=== PATIENT | female | born 1940 | race Caucasian/White ===

== ENCOUNTER 2017-01-29 19:32 | Emergency (ER) | payer OTHER, MEDICARE ==
[2017-01-29] MEDS ORDERED: ACETAMINOPHEN 325 MG TABLET PO ONE (20:46)
[2017-01-30] MEDS ORDERED: OXYCODONE-ACETAMINOPHEN 5-325 MG TABLET PO ONE (02:19)
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
[2017-01-30] MEDS ORDERED: HYDROCODONE/ACETAMINOPHEN 5-325 MG 6 TAB/DSPK PO PRN (03:02)
[2017-01-30 03:19] VITALS: BP 122/81
== END 2017-01-30 03:19 | disposition home or self-care (01) ==
LOC: ER 19:32
DX: S46.911A Strain of unspecified muscle, fascia and tendon at shoulder and upper arm level, right arm, initial encounter (principal); S16.1XXA Strain of muscle, fascia and tendon at neck level, initial encounter; S39.012A Strain of muscle, fascia and tendon of lower back, initial encounter; S09.93XA Unspecified injury of face, initial encounter; M54.2 Cervicalgia; M54.5 Low back pain; V89.2XXA Person injured in unspecified motor-vehicle accident, traffic, initial encounter
CPT/HCPCS: 99284; 72040; 72110; 73030; 72125; L0120

== ENCOUNTER → 2017-04-10 | Outpatient (CLI) | payer MEDICARE, OTHER ==
--- NOTE | 2017-04-12 08:52 | WOMENS IMAGING REPORT ---
EXAM DESCRIPTION: 3D SCREENING MAMMO BILAT COMPLETED DATE/TIME: 04/10/2017 3:16 pm REASON FOR STUDY: ROUTINE SCREENING 3D; Z12.31 Z12.31 ENCNTR SCREEN MAMMOGRAM FOR MALIGNANT NEOPLAS M OF CHRIS COMPARISON: Multiple since 2008 TECHNIQUE: Standard craniocaudal and mediolateral oblique views of each breast recorded using digita l acquisition and breast tomosynthesis. LIMITATIONS: None. FINDINGS: Findings present which are benign by mammographic criteria. No suspicious masses, calcifi cations or architectural distortion. Pertinent benign findings: Benign breast parenchymal calcifications bilaterally Read with the assistance of CAD. .[facility] - R2 Cenova Version 1.3 .[facility] - R2 Cenova Version 1.3 .[facility] - R2 Cenova Version 2.4 .[facility] [place] - R2 Cenova Version 2.4 .[facility] - R2 Hooker Up Version 9.2 Benign mammographic findings may include one or more of the following: Smooth masses, popcorn/rim/co arse calcifications, asymmetries, post-procedure changes, and lesions with long-standing stability. IMPRESSION: BENIGN MAMMOGRAPHIC FINDINGS. BIRADS 2 BREAST DENSITY: b. There are scattered areas of fibroglandular density. BIRAD: 2 BENIGN FINDING(S) RECOMMENDATION: RECOMMENDATION: ROUTINE SCREENING COMMENT: The patient has been notified of the results by letter per SA requirements. Additional no tification policies are in place for contacting patient with suspicious or incomplete findings. Quality ID #[id number]: The [employer] recommends an annual screening mammogram for women aged 40 years or over. This facility utilizes a reminder system to ensure that all patients receive reminder letters, and/or direct phone calls for appointments. This includes reminders for routine scr eening mammograms, diagnostic mammograms, or other Breast Imaging Interventions when appropriate. Th is patient will be placed in the appropriate reminder system. The [place] [employer] (ACR) has developed recommendations for screening MRI of the breast s in certain patient populations, to be used in conjunction with mammography. Breast MRI surveillanc e may be appropriate for women with more than 20% lifetime risk of developing breast cancer as deter mined by genetic testing, significant family history of the disease, or history of mantle radiation f or Hodgkins Disease. ACR Practice Guidelines 2008. DBT Technology DBT is a type of tomographic mammography. With conventional mammography, overlapping breast tissue ma y make lesions difficult to detect, even with good compression. DBT uses an x-ray tube that rotates a round the breast, taking images at different angles. These images are then combined to create thin sl ices of the breast that the radiologist can view as a 3D reconstruction. The [employer] unit can perform full-field digital mammograms (2D imaging); or DBT (3D imaging); or both, in a combination mode that quickly performs both the mammogram and the tomosynthesis scan while the breast is still compressed. PQRS 6045F: Fluoroscopic imaging is not utilized for breast tomosynthesis. TECHNICAL DOCUMENTATION: FINDING NUMBER: (1) ASSESSMENT: (1) JOB ID: [id number] [employer]- All Rights Reserved
== END ==
LOC: WI 14:34
PROVIDERS: ATTEND Physician Assistant
DX: Z12.31 Encounter for screening mammogram for malignant neoplasm of breast (principal)
CPT/HCPCS: 77063; G0202; 77067

== ENCOUNTER 2017-06-16 17:59 | Emergency (ER) | payer MEDICARE, OTHER ==
[2017-06-16] MEDS ORDERED: ALBUTEROL SULFATE 0.083% NEB 2.5 MG/3 ML AMPUL NEB ONE (18:45)
--- NOTE | 2017-06-16 18:47 | ER Document Report ---
ED Medical Screen (RME) - General Chief Complaint: Breathing Difficulty Stated Complaint: DIFFICULTY BREATHING Time Seen by Provider: 06/16/17 18:42 Mode of Arrival: Wheelchair Information source: Patient Notes: 77-year-old female COPD who for the past week has been on steroids Levaquin taking duo nebs 3 times a day presents with complaints of shortness of breath I have greeted and performed a rapid initial assessment of this patient. A comprehensive ED assessment and evaluation of the patient, analysis of test results and completion of the medical decision making process will be conducted by additional ED providers. PHYSICAL EXAMINATION: GENERAL: Well-appearing, well-nourished and in no acute distress. HEAD: Atraumatic, normocephalic. EYES: Pupils equal round extraocular movements intact, conjunctiva are normal. ENT: Nares patent NECK: Normal range of motion LUNGS:coarse rhonchi all throughout Musculoskeletal: Normal range of motion NEUROLOGICAL: Normal speech, normal gait. PSYCH: Normal mood, normal affect. SKIN: Warm, Dry, normal turgor, no rashes or lesions noted. TRAVEL OUTSIDE OF THE [place] IN LAST 30 DAYS: No - Related Data Allergies/Adverse Reactions: cefditoren [From Spectracef] Allergy (Verified 01/29/17 20:41) Past Medical History - Social History Chew tobacco use (# tins/day): No Frequency of alcohol use: None Drug Abuse: None - Past Medical History Cardiac Medical History: Reports: Hx Congestive Heart Failure, Hx Hypertension Denies: Hx Heart Attack Pulmonary Medical History: Reports: Hx Asthma, Hx COPD, Hx Pneumonia Denies: Hx Tuberculosis Neurological Medical History: Denies: Hx Cerebrovascular Accident - BELLS PALSY 30 YEAR AGO, Hx Seizures Renal/ Medical History: Denies: Hx Peritoneal Dialysis GI Medical History: Reports: Hx Gastroesophageal Reflux Disease, Hx Hiatal Hernia. Denies: Hx Hepatitis, Hx Ulcer Musculoskeltal Medical History: Reports Hx Arthritis Psychiatric Medical History: Reports: Hx Depression Infectious Medical History: Denies: Hx Hepatitis Past Surgical History: Reports: Hx Genitourinary Surgery - BLADDER SURGERIES, Hx Hysterectomy, Hx Urinary Tract Surgery. Denies: Hx Mastectomy, Hx Open Heart Surgery, Hx Pacemaker - Immunizations Hx Diphtheria, Pertussis, Tetanus Vaccination: Yes Physical Exam - Vital signs Vitals: Temp Pulse Resp BP Pulse Ox 97.8 F 65 20 142/68 H 98 06/16/17 18:21 06/16/17 18:21 06/16/17 18:21 06/16/17 18:21 06/16/17 18:21 Course - Vital Signs Vital signs: Temp Pulse Resp BP Pulse Ox 97.8 F 65 20 142/68 H 98 06/16/17 18:21 06/16/17 18:21 06/16/17 18:42 06/16/17 18:21 06/16/17 18:21
--- NOTE | 2017-06-16 19:30 | ER Document Report ---
ED General - General Chief Complaint: Breathing Difficulty Stated Complaint: DIFFICULTY BREATHING Time Seen by Provider: 06/16/17 18:42 Mode of Arrival: Wheelchair Notes: Patient is a 77-year-old female with past medical history of COPD, CHF, hypertension, hyperlipidemia who presents with 2 weeks of cough, shortness of breath and sputum production. States she saw her primary care doctor was started on steroids and levofloxacin without any significant improvement of her symptoms. States exertion worsens her symptoms. She denies any chest pain. She has not had any fever or constitutional symptoms. No hemoptysis. No history of DVT or pulmonary embolus. She does use albuterol inhalers at home with some improvement of her symptoms. She has a history of similar symptoms in the past in setting of COPD exacerbations and pneumonia. TRAVEL OUTSIDE OF THE [place] IN LAST 30 DAYS: No - Related Data Allergies/Adverse Reactions: cefditoren [From Spectracef] Allergy (Verified 06/16/17 20:02) Past Medical History - General Information source: Patient - Social History Smoking Status: Never Smoker Chew tobacco use (# tins/day): No Frequency of alcohol use: None Drug Abuse: None Lives with: Family Family History: Reviewed & Not Pertinent - Past Medical History Cardiac Medical History: Reports: Hx Congestive Heart Failure, Hx Hypertension Denies: Hx Heart Attack Pulmonary Medical History: Reports: Hx Asthma, Hx COPD, Hx Pneumonia Denies: Hx Tuberculosis Neurological Medical History: Denies: Hx Cerebrovascular Accident - BELLS PALSY 30 YEAR AGO, Hx Seizures Renal/ Medical History: Denies: Hx Peritoneal Dialysis GI Medical History: Reports: Hx Gastroesophageal Reflux Disease, Hx Hiatal Hernia. Denies: Hx Hepatitis, Hx Ulcer Musculoskeltal Medical History: Reports Hx Arthritis Psychiatric Medical History: Reports: Hx Depression Infectious Medical History: Denies: Hx Hepatitis Past Surgical History: Reports: Hx Genitourinary Surgery - BLADDER SURGERIES, Hx Hysterectomy, Hx Urinary Tract Surgery. Denies: Hx Mastectomy, Hx Open Heart Surgery, Hx Pacemaker - Immunizations Hx Diphtheria, Pertussis, Tetanus Vaccination: Yes Hx Pneumococcal Vaccination: 10/28/11 Review of Systems - Review of Systems Notes: Constitutional: Negative for fever. HENT: Negative for sore throat. Eyes: Negative for visual changes. Cardiovascular: Negative for chest pain. Respiratory: Positive for shortness of breath. Gastrointestinal: Negative for abdominal pain, vomiting or diarrhea. Genitourinary: Negative for dysuria. Musculoskeletal: Negative for back pain. Skin: Negative for rash. Neurological: Negative for headaches, weakness or numbness. 10 point ROS negative except as marked above and in HPI. Physical Exam - Vital signs Vitals: Temp Pulse Resp BP Pulse Ox 97.8 F 65 20 142/68 H 98 06/16/17 18:21 06/16/17 18:21 06/16/17 18:21 06/16/17 18:21 06/16/17 18:21 Interpretation: Normal Notes: PHYSICAL EXAMINATION: GENERAL: Well-appearing, well-nourished and in no acute distress. HEAD: Atraumatic, normocephalic. EYES: Pupils equal round and reactive to light, extraocular movements intact, sclera anicteric, conjunctiva are normal. ENT: nares patent, oropharynx clear without exudates. Moist mucous membranes. NECK: Normal range of motion, supple without lymphadenopathy LUNGS: Scattered rales in all lung alberts. Expiratory wheezing. Mild tachypnea but no evidence of respiratory distress HEART: Regular rate and rhythm without murmurs ABDOMEN: Soft, nontender, normoactive bowel sounds. No guarding, no rebound. No masses appreciated. EXTREMITIES: Normal range of motion, no pitting or edema. No cyanosis. NEUROLOGICAL: No focal neurological deficits. Moves all extremities spontaneously and on command. PSYCH: Normal mood, normal affect. SKIN: Warm, Dry, normal turgor, no rashes or lesions noted. Course - Re-evaluation Re-evalutation: 06/16/17 19:28 Patient presents with 1 week of progressively worsening shortness of breath and cough with history of COPD as well as CHF. Patient denies any weight gain and states she does weigh herself daily. She only has trace lower extremity edema bilaterally and does take 100 mg of furosemide daily and has not missed any dosing. Lung exam with scattered rales and wheezes in all lung alberts. No respiratory distress. She is already being treated for possible COPD exacerbation as an outpatient with steroids, levofloxacin as well as scheduled DuoNeb's without any significant improvement in her symptoms. COPD exacerbation is an alternative consideration. Will obtain labs, chest x-ray, and reassess. 06/16/17 20:30 Chest x-ray is clear without any evidence of pulmonary edema. ProBNP is not elevated. Labs are unremarkable. Will ambulate with a pulse ox and reassess 06/16/17 20:57 Patient did ambulate without hypoxia or tachycardia. However, did become lightheaded and near syncopal after a short distance requiring that she sit down and be placed in a wheelchair to return to her room. Will continue to treat and reassess. 06/16/17 22:13 Patient has had improvement of her symptoms. Remains without hypoxemia, tachycardia or tachypnea. I have discussed with the patient the options of being admitted to the hospital versus outpatient management. We have reviewed the risks and benefits of each approach. Her daughter at the bedside as a witness this conversation. Patient states she would like to go home and continue trying outpatient management and close outpatient follow-up. At this time will discharge with return precautions and follow-up recommendations. Verbal discharge instructions given a the bedside and opportunity for questions given. Medication warnings reviewed. Patient is in agreement with this plan and has verbalized understanding of return precautions and the need for primary care follow-up in the next 24-72 hours. - Vital Signs Vital signs: Temp Pulse Resp BP Pulse Ox 97.7 F 65 18 140/69 H 97 06/16/17 22:15 06/16/17 18:21 06/16/17 22:01 06/16/17 22:01 06/16/17 22:01 - Laboratory Result Diagrams: 06/16/17 19:18 06/16/17 19:18 Laboratory results interpreted by me: 06/16/17 06/16/17 19:18 19:18 RDW 15.1 H BUN 21 H Est GFR (Non-Af Amer) 57 L - Diagnostic Test Radiology reviewed: Image reviewed, Reports reviewed Radiology results interpreted by me: 06/16/17 22:14 Chest x-ray: No acute infiltrate or pneumothorax - EKG Interpretation by Me Additional EKG results interpreted by me: 06/17/17 04:09 Normal sinus rhythm. Rate 63. No ST elevations or depressions. QTC is 471. Discharge - Discharge Clinical Impression: COPD exacerbation Condition: Fair Disposition: HOME, SELF-CARE Additional Instructions: You were seen for a COPD exacerbation. Your symptoms improved with treatment here in the emergency department. However, it is very important that you return to the emergency department immediately if you began to have worsening difficulty breathing that does not respond to your normal home nebulizers. You are also being sent home on a five-day course of steroids that you should start taking tomorrow. Please also take the antibiotics as prescribed. Please also follow closely with your primary care physician. You should eturn to emergency department if you develop fever greater than 101, persistent cough, persistent vomiting, pass out, or any other symptoms that are concerning to you. Prescriptions: Doxycycline Hyclate 100 mg PO BID #14 capsule Prednisone [Deltasone 20 mg Tablet] 3 tab PO DAILY 5 Days tablet Referrals: NIA MENDOSA PA [Primary Care Provider] - Follow up tomorrow
[2017-06-16 19:41] LABS: ABSOLUTE EOSINOPHILS # (AUTO) 0.1 10^3/uL (0.0-0.6); ABSOLUTE LYMPHOCYTES (AUTO) 2.7 10^3/uL (0.5-4.7); ABSOLUTE MONOCYTES (AUTO) 0.6 10^3/uL (0.1-1.4); ABSOLUTE NEUT (AUTO) 5.3 10^3/uL (1.7-8.2); BASOPHILS % (AUTO) 0.3 % (0-2); EOSINOPHILS % (AUTO) 1.6 % (0-6); HEMATOCRIT 36.8 % (36.0-47.0); HEMOGLOBIN 12.5 g/dL (12.0-15.5); HGB HCT DIFFERENCE 0.7; LYMPHOCYTES % (AUTO) 30.8 % (13-45); MEAN CORPUSCULAR HEMOGLOBIN 31.4 pg (27.0-33.4); MEAN CORPUSCULAR HGB CONC 34.1 g/dL (32.0-36.0); MEAN CORPUSCULAR VOLUME 92 fl (80-97); MONOCYTES % (AUTO) 7.1 % (3-13); RED BLOOD COUNT 3.99 10^6/uL (3.72-5.28); RED CELL DISTRIBUTION WIDTH 15.1 % (11.5-14.0); SEGMENTED NEUTROPHILS % (AUTO) 60.2 % (42-78); WHITE BLOOD COUNT 8.8 10^3/uL (4.0-10.5)
[2017-06-16 19:43] LABS: ALANINE AMINOTRANSFERASE 49 U/L (9-52); ALKALINE PHOSPHATASE 92 U/L (38-126); ANION GAP 11 (5-19); ASPARTATE AMINO TRANSFERASE 29 U/L (14-36); BILIRUBIN,DIRECT 0.3 mg/dL (0.0-0.4); BILIRUBIN,TOTAL 0.3 mg/dL (0.2-1.3); BLOOD UREA NITROGEN 21 mg/dL (7-20); CALCIUM 9.4 mg/dL (8.4-10.2); CARBON DIOXIDE 27 mmol/L (22-30); CHLORIDE 105 mmol/L (98-107); CREATINE KINASE 55 U/L (30-135); CREATININE RESULT 0.95 mg/dL (0.52-1.25); GLUCOSE 83 mg/dL (75-110); POTASSIUM 3.8 mmol/L (3.6-5.0); SODIUM 143.3 mmol/L (137-145); TOTAL PROTEIN 6.3 g/dL (6.3-8.2)
[2017-06-16 19:52] LABS: APPEARANCE,URINE CLEAR; BILIRUBIN,URINE NEGATIVE (NEGATIVE); GLUCOSE, URINE NEGATIVE (NEGATIVE); KETONES,URINE NEGATIVE (NEGATIVE); LEUKOCYTE ESTERASE,URINE NEGATIVE (NEGATIVE); NITRITE,URINE NEGATIVE (NEGATIVE); PROTEIN,URINE NEGATIVE (NEGATIVE); UROBILINOGEN,URINE NEGATIVE mg/dL (<2.0)
[2017-06-16 19:55] LABS: CREATINE KINASE MB 3.22 ng/mL (<4.55)
[2017-06-16 19:56] LABS: TROPONIN I < 0.012 ng/mL
--- NOTE | 2017-06-16 19:58 | RADIOLOGY REPORT (SQ) ---
EXAM DESCRIPTION: CHEST SINGLE VIEW COMPLETED DATE/TIME: 06/16/2017 7:46 pm REASON FOR STUDY: sob COMPARISON: September 2016 EXAM PARAMETERS: NUMBER OF VIEWS: One view. TECHNIQUE: Single frontal radiographic view of the chest acquired. RADIATION DOSE: NA LIMITATIONS: None. FINDINGS: LUNGS AND PLEURA: No opacities, masses or pneumothorax. No pleural effusion. Linear densi ty is identified in the left lung base which could represent subsegmental atelectasis or scarring. MEDIASTINUM AND HILAR STRUCTURES: No masses. Contour normal. HEART AND VASCULAR STRUCTURES: Heart normal in size. Normal vasculature. BONES: No acute findings. HARDWARE: None in the chest. OTHER: No other significant finding. IMPRESSION: NO ACUTE RADIOGRAPHIC FINDING IN THE CHEST. TECHNICAL DOCUMENTATION: JOB ID: [id number]
[2017-06-16] MEDS ORDERED: IPRATROPIUM/ALBUTEROL 0.5-2.5 MG/3 ML AMPUL NEB ONE (20:29)
[2017-06-16] MEDS ORDERED: METHYLPREDNISOLONE INJ 125 MG/2 ML SDV IV ONE (20:29)
[2017-06-16] MEDS: MAGNESIUM SULFATE/D5W 1 GM/100 ML RTUPB IV SCH ×2 (20:56→21:14)
--- NOTE | 2017-06-16 21:11 | EKG REPORT ---
SEVERITY:- NORMAL ECG - SINUS RHYTHM : Confirmed by: Josue Guadarrama MD 16-Jun-2017 21:10:48
[2017-06-16 22:27] VITALS: BP 140/69
== END 2017-06-16 22:20 | disposition home or self-care (01) ==
LOC: ER 17:59
DX: J44.1 Chronic obstructive pulmonary disease with (acute) exacerbation (principal); R55 Syncope and collapse; I11.0 Hypertensive heart disease with heart failure; I50.9 Heart failure, unspecified; Z79.899 Other long term (current) drug therapy; R06.02 Shortness of breath; R05 Cough; Z87.01 Personal history of pneumonia (recurrent)
CPT/HCPCS: 93005; 96376; 94640 ×2; 99285; 96374; 96375; 36415; 87040; 82553; 82550; 85025; 80053; 81001; 84484; 83880; 71010; 93010; J2930; J3475; A9270 ×2; J7620

== ENCOUNTER → 2017-06-19 | Outpatient (CLI) | payer MEDICARE, OTHER ==
--- NOTE | 2017-06-19 14:50 | RADIOLOGY REPORT (SQ) ---
EXAM DESCRIPTION: CTA CHEST COMPLETED DATE/TIME: 06/19/2017 2:27 pm REASON FOR STUDY: R/O MASS, PE, PNE J44.1 CHRONIC OBSTRUCTIVE PULMONARY DISEASE W (ACUTE) EXACER R9 3.8 ABNORMAL FINDINGS ON DIAGNOSTIC IMAGING OF BODY STRUCT R06.02 SHORTNESS OF BREATH COMPARISON: 01/08/2014 TECHNIQUE: CT scan of the chest performed using helical scanning technique with dynamic intravenous contrast injection. Images reviewed with lung, soft tissue and bone windows. Reconstructed coronal and sagittal MPR images reviewed. Additional 3 dimensional post-processing performed to develop Maximal Intensity Projection images (WA P). All images stored on PACS. All CT scanners at this facility use dose modulation, iterative reconstruction, and/or weight based d osing when appropriate to reduce radiation dose to as low as reasonably achievable (ALARA). [facility]: Dose Right [facility]: CareDose [facility]: Dose Right [facility]: Teradose 4D [facility]: DIIME CONTRAST TYPE AND DOSE: contrast/concentration: Isovue 370.00 mg/ml; Total Contrast Delivered: 63.0 ml; Total Saline Delivered: 100.0 ml RENAL FUNCTION: Creatinine 0.9 RADIATION DOSE: Up-to-date CT equipment and radiation dose reduction techniques were employed. CTDIv ol: 10.5 - 11.3 mGy. DLP: 409 mGy-cm. . LIMITATIONS: None. FINDINGS: LUNGS AND PLEURA: 5 mm calcified granuloma in the right lower lobe smaller than on the hank or study. Stable 2 mm calcified granuloma in the right middle lobe. Minimal stable scarring in the right middle lobe. Mild COPD. Minimal left basilar scarring. No active infiltrate. No effusion. AORTA AND GREAT VESSELS: Poorly opacified. No definite abnormalities. HEART: No pericardial effusion. Mild coronary artery calcification. PULMONARY ARTERIES: No emboli visualized in the main pulmonary arteries or the segmental branches. HILAR AND MEDIASTINAL STRUCTURES: No identified masses or abnormal nodes. HARDWARE: None in the chest. UPPER ABDOMEN: No significant findings. Limited exam. THYROID AND OTHER SOFT TISSUES: No masses. No adenopathy. BONES: No acute or significant finding. 3D MIPS: Confirm above findings. OTHER: No other significant finding. IMPRESSION: 1. No evidence of pulmonary embolus. 2. Mild COPD. 3. Old granulomatous disease with minimal scarring. TECHNICAL DOCUMENTATION: JOB ID: [id number] Quality ID # [id number]: Final reports with documentation of one or more dose reduction techniques (e.g., Au tomated exposure control, adjustment of the mA and/or kV according to patient size, use of iterative reconstruction technique) 2010 [employer]- All Rights Reserved
== END ==
LOC: RAD 13:27
PROVIDERS: ATTEND Physician Assistant
DX: J44.1 Chronic obstructive pulmonary disease with (acute) exacerbation (principal); R06.02 Shortness of breath; R93.8 Abnormal findings on diagnostic imaging of other specified body structures
CPT/HCPCS: 71275; 82565

== ENCOUNTER 2017-07-19 10:17 | Emergency (ER) | payer MEDICARE, OTHER ==
[2017-07-19 10:21] VITALS: BP 155/69
[2017-07-19] MEDS ORDERED: LIDOCAINE 1% INJ-PF (10 MG/ML) 30 ML SDV INJ ONE (10:30)
--- NOTE | 2017-07-19 10:31 | ER Document Report ---
HPI - HPI Pain Level: 4 Notes: Patient is a 77-year-old female who presents the ED complaining of a laceration to her right fifth anterior digit status post crush injury between a chair and table prior to arrival. Patient states that she is still able to move the finger without difficulties. She denies any numbness or tingling. The pain does not radiate. The pain is described as a soreness. Patient denies any other significant past medical history at this time. She denies any smoking or drug use. Denies any headache, fever, chest pain, palpitations, syncope, cough , shortness of breath, wheeze, dyspnea, abdominal pain, nausea/vomiting/diarrhea , dysuria, hematuria, muscle paralysis/weakness, or rash. Last tetanus <5 yrs ago per pt. - ROS Notes: REVIEW OF SYSTEMS: CONSTITUTIONAL : Denies fever, chills, or sweats. Denies recent illness. EENT: Denies eye, ear, throat, or mouth pain or symptoms. Denies nasal or sinus congestion or discharge. Denies throat, tongue, or mouth swelling or difficulty swallowing. CARDIOVASCULAR: Denies chest pain. Denies palpitations or racing or irregular heart beat. Denies ankle edema. RESPIRATORY: Denies cough, cold, or chest congestion. Denies shortness of breath, difficulty breathing, or wheezing. GASTROINTESTINAL: Denies abdominal pain or distention. Denies nausea, vomiting , or diarrhea. Denies blood in vomitus, stools, or per rectum. Denies black, tarry stools. Denies constipation. GENITOURINARY: Denies difficulty urinating, painful urination, burning, frequency, blood in urine, or discharge. MUSCULOSKELETAL: Denies back or neck pain or stiffness. Denies joint pain or swelling. SKIN: see hpi NEUROLOGICAL: Denies confusion or altered mental status. Denies passing out or loss of consciousness. Denies dizziness or lightheadedness. Denies headache. Denies weakness or paralysis or loss of use of either side. Denies problems with gait or speech. Denies sensory loss, numbness, or tingling. ALL OTHER SYSTEMS REVIEWED AND NEGATIVE. Dictation was performed using [employer] voice recognition software - REPRODUCTIVE Reproductive: DENIES: : - DERM Skin Color: Normal Past Medical History - Social History Smoking Status: Never Smoker Family History: Reviewed & Not Pertinent - Past Medical History Cardiac Medical History: Reports: Hx Congestive Heart Failure, Hx Hypertension Denies: Hx Heart Attack Pulmonary Medical History: Reports: Hx Asthma, Hx COPD, Hx Pneumonia Denies: Hx Tuberculosis Neurological Medical History: Denies: Hx Cerebrovascular Accident - BELLS PALSY 30 YEAR AGO, Hx Seizures Renal/ Medical History: Denies: Hx Peritoneal Dialysis GI Medical History: Reports: Hx Gastroesophageal Reflux Disease, Hx Hiatal Hernia. Denies: Hx Hepatitis, Hx Ulcer Musculoskeltal Medical History: Reports Hx Arthritis Psychiatric Medical History: Reports: Hx Depression Infectious Medical History: Denies: Hx Hepatitis Past Surgical History: Reports: Hx Genitourinary Surgery - BLADDER SURGERIES, Hx Hysterectomy, Hx Urinary Tract Surgery. Denies: Hx Mastectomy, Hx Open Heart Surgery, Hx Pacemaker - Immunizations Hx Diphtheria, Pertussis, Tetanus Vaccination: Yes Hx Pneumococcal Vaccination: 10/28/11 Vertical Provider Document - CONSTITUTIONAL Agree With Documented VS: Yes Notes: PHYSICAL EXAMINATION: GENERAL: Well-appearing, well-nourished and in no acute distress. LUNGS: Breath sounds clear to auscultation bilaterally and equal. No wheezes rales or rhonchi. HEART: Regular rate and rhythm without murmurs, rubs, gallops. Musculoskeletal: Rt 5th digit: FROM to passive/active. Strength 5+/5. + 1cm laceration to the anterior digit b/w IP jts. No bony tenderness. N/V intact distal. Extremities: No cyanosis, clubbing, or edema b/l. Peripheral pulses 2+. Capillary refill less than 3 seconds. NEUROLOGICAL: Normal speech, normal gait. Normal sensory, motor exams PSYCH: Normal mood, normal affect. SKIN: see MSK exam. - INFECTION CONTROL TRAVEL OUTSIDE OF THE [place] IN LAST 30 DAYS: No - RESPIRATORY O2 Sat by Pulse Oximetry: 97 Course - Re-evaluation Re-evalutation: 07/19/17 11:30 Patient is an afebrile, well-hydrated, 77-year-old female who presents the ED with 1/5 digit laceration. Vitals are stable. PE otherwise unremarkable for any neurovascular compromise. Low suspicion/risk for any tendon or ligament laceration, septic joint, sepsis, necrotizing fasciitis, or deep space infection. Patient is aware that her condition can change from initial presentation and she needs to monitor symptoms closely and seek medical attention if any acute changes. Wound edges were approximated appropriately utilizing 3 simple interrupted sutures. Patient tolerated the procedure well without any complications. Wound thoroughly irrigated/cleansed. Wound dressing was placed and wound instructions were reviewed. Splint placed. I will send her home with a prescription for Bactrim as prophylactic. Tdap given today. Conservative measures for symptoms as reviewed. Recheck with your PCM in 2-3 days for a wound check. Sutures will need removed in 10-14 days. Return to the ED with any worsening/concerning symptoms otherwise as reviewed discharge. Patient is in agreement. - Vital Signs Vital signs: Temp Pulse Resp BP Pulse Ox 97.6 F 77 16 155/69 H 97 07/19/17 10:18 07/19/17 10:18 07/19/17 10:18 07/19/17 10:18 07/19/17 10:18 Procedures - Laceration/Wound Repair Right 5th digit Time completed: 11:25 Wound length (cm): 1 Wound's Depth, Shape: Superficial, Irregular Laceration pre-procedure: Sterile PPE donned, Sterile drapes applied, Shur- Clens applied Anesthetic type: 1% Lidocaine Volume Anesthetic (mLs): 4 Wound explored: Clean, No foreign body removed Irrigated w/ Saline (mLs): 60 Wound Debrided: Minimal Wound Repaired With: Sutures Suture Size/Type: 5:0, Nylon Number of Sutures: 3 Layer Closure?: No Post-procedure wound care: Sterile dressing applied, Splint applied Post-procedure NV exam normal: Yes Complications: No Discharge - Discharge Clinical Impression: Finger laceration Qualifiers: Encounter type: initial encounter Finger: little finger Damage to nail status: without damage Foreign body presence: without foreign body Laterality: right Qualified Code(s): S61.216A - Laceration without foreign body of right little finger without damage to nail, initial encounter Condition: Stable Disposition: HOME, SELF-CARE Instructions: Antibiotic Ointment Protection ([facility]), Laceration Care ([facility]), Prophylactic Antibiotic ([facility]), Soap Cleansing ([facility]) Additional Instructions: Do not shower or bathe for 24 hours. After 24 hours you may shower but no submersion of the wound under water. Keep the original dressing on the wound for 24 hours unless the drainage soaks through. Change the dressing daily thereafter and keep the knots of the suture material clean from any dried discharge. You may leave the wound open to the air once there is no more discharge. Return to the ED and/or your PCM in 2-3 days for a recheck. Monitor for any signs of worsening pain or redness, purulent drainage, streaks, and/or fever. Return to the ED if noticing any of the above symptoms or as needed. Take medications as directed. Your sutures will need to be removed in 10-14 days. Prescriptions: Sulfamethoxazole/Trimethoprim [Bactrim Ds Tablet] 1 each PO BID #10 tablet Forms: Elevated Blood Pressure Referrals: [facility] [Provider Group] - Follow up as needed
--- NOTE | 2017-07-19 11:27 | RADIOLOGY REPORT (SQ) ---
EXAM DESCRIPTION: FINGER RIGHT COMPLETED DATE/TIME: 07/19/2017 11:01 am REASON FOR STUDY: Laceration, crush injury rt 5th digit COMPARISON: None. NUMBER OF VIEWS: Three views. TECHNIQUE: AP, lateral, and oblique images acquired of the right fifth finger. LIMITATIONS: None. FINDINGS: MINERALIZATION: Osteopenia. BONES: No acute fracture or dislocation. No worrisome bone lesions. SOFT TISSUES: No soft tissue swelling. No foreign body. OTHER: Considerable degenerative joint changes seen in the 1st carpal metacarpal joint. IMPRESSION: NO RADIOGRAPHIC EVIDENCE OF ACUTE INJURY. COMMENT: SITE OF TRAUMA/COMPLAINT MARKED/STAMP COMPLETED: Yes TECHNICAL DOCUMENTATION: JOB ID: [id number] [employer]- All Rights Reserved
== END 2017-07-19 11:40 | disposition home or self-care (01) ==
LOC: ER 10:17
PROC: 0HQFXZZ Repair Right Hand Skin, External Approach (ICD-10-PCS; principal; 2017-07-19)
DX: S61.216A Laceration without foreign body of right little finger without damage to nail, initial encounter (principal); W23.0XXA Caught, crushed, jammed, or pinched between moving objects, initial encounter; I10 Essential (primary) hypertension; J44.9 Chronic obstructive pulmonary disease, unspecified
CPT/HCPCS: 99283; 73140; 12001; J3490

== ENCOUNTER → 2017-10-07 | Outpatient (CLI) | payer MEDICARE, OTHER ==
--- NOTE | 2017-10-07 16:32 | RADIOLOGY REPORT (SQ) ---
EXAM DESCRIPTION: WRIST RIGHT 3 VIEWS COMPLETED DATE/TIME: 10/07/2017 2:58 pm REASON FOR STUDY: PAIN IN RIGHT WRIST M25.531 PAIN IN RIGHT WRIST COMPARISON: None. NUMBER OF VIEWS: Four views. TECHNIQUE: AP, lateral, oblique, and scaphoid radiographic images acquired of the right wrist. LIMITATIONS: None. FINDINGS: MINERALIZATION: Osteopenia. BONES: No acute fracture. Joint space narrowing and osteophyte formation base of 1st metacarpal. SOFT TISSUES: No soft tissue swelling. No foreign body. OTHER: No other significant finding. IMPRESSION: Osteoarthritis. No acute findings. TECHNICAL DOCUMENTATION: JOB ID: [id number] [employer]- All Rights Reserved
== END ==
LOC: RAD 14:42
PROVIDERS: ATTEND Physician Assistant
DX: M25.531 Pain in right wrist (principal); R42 Dizziness and giddiness

== ENCOUNTER → 2017-11-15 | Outpatient (CLI) | payer MEDICARE, OTHER ==
[2017-11-18 13:34] LABS: ANTINUCLEAR ANTIBODIES Negative (Negative)
== END ==
LOC: OD 14:51
PROVIDERS: ATTEND Physician Assistant
DX: R51 Headache (principal)
CPT/HCPCS: 36415; 85652; 86038; 86140

== ENCOUNTER 2018-02-14 20:15 | Inpatient (IN) | payer MEDICARE, OTHER ==
[2018-02-14] MEDS ORDERED: IPRATROPIUM/ALBUTEROL 0.5-2.5 MG/3 ML AMPUL NEB ONE (21:46)
[2018-02-14] MEDS ORDERED: NORMAL SALINE 1000 ML 1,000 ML IV PRN (21:46)
--- NOTE | 2018-02-14 21:58 | ER Document Report ---
ED General - General Chief Complaint: Tremor Stated Complaint: POSSIBLE TREMORS Time Seen by Provider: 02/14/18 21:27 TRAVEL OUTSIDE OF THE [place] IN LAST 30 DAYS: No - HPI Notes: Patient is a 77-year-old female with a h/o chronic kidney disease, CHF, HTN, and COPD who presents to the ED with daughter complaining of generalized muscle spasming and twitching over the last 6 weeks, but worsened at 1300 today. Patient states that the shaking constantly has caused her to feel fatigued and weak with an unsteady gait. Patient states that she has to ambulate with assistance to use the bathroom at this time. Patient states that her symptoms are bilateral and to her upper and lower extremities as well as even her shoulders. Patient states that she is otherwise eating and drinking without difficulties. She has been urinating normally and having normal bowel movements. She has not taken any new medicines and has been taking her normal medication regimen as directed. She has no other concerns or complaints at this time. Denies any headache, fever, head injury, neck pain, changes in vision/speech/mentation/hearing, URI, sore throat, chest pain, palpitations, syncope, cough, shortness of breath, wheeze, dyspnea, abdominal pain, nausea/ vomiting/diarrhea, urinary retention, dysuria, hematuria, loss of control of bowel or bladder, numbness/tingling, saddle anesthesia, muscle paralysis/ weakness, or rash. - Related Data Allergies/Adverse Reactions: cefditoren [From Spectracef] Allergy (Verified 02/14/18 20:51) Past Medical History - Social History Smoking Status: Former Smoker Chew tobacco use (# tins/day): No Frequency of alcohol use: None Drug Abuse: None Family History: Reviewed & Not Pertinent Patient has suicidal ideation: No Patient has homicidal ideation: No - Past Medical History Cardiac Medical History: Reports: Hx Congestive Heart Failure, Hx Hypertension Denies: Hx Heart Attack Pulmonary Medical History: Reports: Hx Asthma, Hx COPD, Hx Pneumonia Denies: Hx Tuberculosis Neurological Medical History: Denies: Hx Cerebrovascular Accident - BELLS PALSY 30 YEAR AGO, Hx Seizures Renal/ Medical History: Denies: Hx Peritoneal Dialysis GI Medical History: Reports: Hx Gastroesophageal Reflux Disease, Hx Hiatal Hernia. Denies: Hx Hepatitis, Hx Ulcer Musculoskeltal Medical History: Reports Hx Arthritis Psychiatric Medical History: Reports: Hx Depression Infectious Medical History: Denies: Hx Hepatitis Past Surgical History: Reports: Hx Genitourinary Surgery - BLADDER SURGERIES, Hx Hysterectomy, Hx Urinary Tract Surgery. Denies: Hx Mastectomy, Hx Open Heart Surgery, Hx Pacemaker - Immunizations Hx Diphtheria, Pertussis, Tetanus Vaccination: Yes Hx Pneumococcal Vaccination: 10/28/11 Review of Systems - Review of Systems -: Yes All other systems reviewed and negative Physical Exam - Vital signs Vitals: Temp Pulse BP Pulse Ox 97.6 F 83 133/36 H 96 02/14/18 20:49 02/14/18 20:49 02/14/18 20:49 02/14/18 20:49 - Notes Notes: PHYSICAL EXAMINATION: GENERAL: Well-appearing, well-nourished and in no acute distress. A&Ox4. Answers questions appropriately. HEAD: Atraumatic, normocephalic. EYES: Pupils equal round and reactive to light, extraocular movements intact, sclera anicteric, conjunctiva are normal. no nystagmus. ENT: Nares patent and without discharge. oropharynx clear without exudates. No tonsilar hypertrophy or erythema. Moist mucous membranes. NECK: Normal range of motion, supple without lymphadenopathy. No rigidity. No midline tenderness. Spurling negative. LUNGS: scant wheeze b/l. Dec breath sounds left lower. HEART: Regular rate and rhythm without murmurs, rubs, gallops. ABDOMEN: Soft, nontender, nondistended abdomen. No guarding, no rebound. No masses appreciated. Normal bowel sounds present. No CVA tenderness bilaterally. Musculoskeletal: Ext b/l: FROM to passive/active. Strength 4+/5 b/l equal. No deficits noted. No bony tenderness of extremities. Back: FROM to passive/active. Strength 5+/5. No vertebral point tenderness, stepoffs, or deformities. No other bony tenderness or ecchymosis. SLR negative b/l. Extremities: No cyanosis, clubbing, or edema b/l. Peripheral pulses 2+. Capillary refill less than 2 seconds. NEUROLOGICAL: NIH 0. GCS 15. Cranial nerves grossly intact. Normal speech. Normal sensory, motor exams. Reflexes 2+ b/l. STANLEY's negative. Pronator drift negative. Heel/sandoval, finger/nose wnl. Clonus negative throughout. I was able to visualize that patient does have muscle twitching b/l extremities. Pt when focused, is able to stop them. PSYCH: Normal mood, normal affect. SKIN: Warm, Dry, normal turgor, no rashes or lesions noted. Course - Re-evaluation Re-evalutation: 02/15/18 00:30 Patient is an afebrile, well-hydrated, 77-year-old female who presents to the ED with acute kidney injury and pleural effusion left lung. Vitals are acceptable. PE is otherwise unremarkable at this time. Patient is tolerating p.o. and is urinating. CBC, BNP, CK, CK-MB, urinalysis were unremarkable for any acute pathology. See CMP results. CXR showed effusion left lung base. NIH 0, GCS 15, cranial nerves grossly intact. Pt was given 1 duoneb treatment. Reviewed case with Dr. Rosales as well. Plan to admit for further eval and management. Reviewed with Dr. Lai who will consult in the morning for thoracentesis. Reviewed with Dr. Quiles who accepted patient for admit. - Vital Signs Vital signs: Temp Pulse Resp BP Pulse Ox 97.6 F 74 19 155/69 H 94 02/14/18 20:49 02/14/18 21:21 02/15/18 00:01 02/15/18 00:01 02/15/18 00:01 - Laboratory Result Diagrams: 02/14/18 21:50 02/14/18 21:50 Laboratory results interpreted by me: 02/14/18 02/14/18 02/14/18 21:50 21:50 21:50 RDW 14.1 H Potassium 3.1 L Chloride 94 L Carbon Dioxide 32 H BUN 67 H Creatinine 2.00 H Est GFR ( Amer) 29 L Est GFR (Non-Af Amer) 24 L Glucose 122 H AST 44 H Creatine Kinase 139 H NT-Pro-B Natriuret Pep 462 H Total Protein 6.0 L Urine Ascorbic Acid 02/14/18 21:58 RDW Potassium Chloride Carbon Dioxide BUN Creatinine Est GFR ( Amer) Est GFR (Non-Af Amer) Glucose AST Creatine Kinase NT-Pro-B Natriuret Pep Total Protein Urine Ascorbic Acid 40 H Discharge - Discharge Clinical Impression: CRISTOBAL (acute kidney injury), Pleural effusion Condition: Stable Disposition: ADMITTED INPATIENT Admitting Provider: Hospitalist - Dr. Quiles Unit Admitted: Telemetry
[2018-02-14 22:21] LABS: ABSOLUTE EOSINOPHILS # (AUTO) 0.4 10^3/uL (0.0-0.6); ABSOLUTE MONOCYTES (AUTO) 0.6 10^3/uL (0.1-1.4); ABSOLUTE NEUT (AUTO) 4.2 10^3/uL (1.7-8.2); BASOPHILS % (AUTO) 0.2 % (0-2); EOSINOPHILS % (AUTO) 4.4 % (0-6); HEMATOCRIT 36.8 % (36.0-47.0); HEMOGLOBIN 12.5 g/dL (12.0-15.5); MEAN CORPUSCULAR HEMOGLOBIN 31.6 pg (27.0-33.4); MEAN CORPUSCULAR HGB CONC 34.1 g/dL (32.0-36.0); MEAN CORPUSCULAR VOLUME 93 fl (80-97); MONOCYTES % (AUTO) 6.8 % (3-13); PLATELET COUNT 206 10^3/uL (150-450); RED BLOOD COUNT 3.97 10^6/uL (3.72-5.28); RED CELL DISTRIBUTION WIDTH 14.1 % (11.5-14.0); SEGMENTED NEUTROPHILS % (AUTO) 51.6 % (42-78); TOTAL CELLS COUNTED % (AUTO) 100 %; WHITE BLOOD COUNT 8.2 10^3/uL (4.0-10.5)
[2018-02-14 22:22] LABS: APPEARANCE,URINE CLEAR; BILIRUBIN,URINE NEGATIVE (NEGATIVE); COLOR,URINE YELLOW; GLUCOSE, URINE NEGATIVE (NEGATIVE); KETONES,URINE NEGATIVE (NEGATIVE); LEUKOCYTE ESTERASE,URINE NEGATIVE (NEGATIVE); NITRITE,URINE NEGATIVE (NEGATIVE); PROTEIN,URINE NEGATIVE (NEGATIVE); URINE SPECIFIC GRAVITY 1.006; UROBILINOGEN,URINE NEGATIVE mg/dL (<2.0)
[2018-02-14 22:57] LABS: ALANINE AMINOTRANSFERASE 48 U/L (9-52); ALBUMIN 4.1 g/dL (3.5-5.0); ALKALINE PHOSPHATASE 83 U/L (38-126); ANION GAP 13 (5-19); ASPARTATE AMINO TRANSFERASE 44 U/L (14-36); BILIRUBIN,DIRECT 0.2 mg/dL (0.0-0.4); BILIRUBIN,TOTAL 0.2 mg/dL (0.2-1.3); BLOOD UREA NITROGEN 67 mg/dL (7-20); CALCIUM 9.1 mg/dL (8.4-10.2); CARBON DIOXIDE 32 mmol/L (22-30); CHLORIDE 94 mmol/L (98-107); CREATINE KINASE 139 U/L (30-135); GLUCOSE 122 mg/dL (75-110); POTASSIUM 3.1 mmol/L (3.6-5.0); SODIUM 139.1 mmol/L (137-145)
--- NOTE | 2018-02-14 23:56 | RADIOLOGY REPORT (SQ) ---
EXAM DESCRIPTION: CHEST SINGLE VIEW COMPLETED DATE/TIME: 02/14/2018 11:23 pm REASON FOR STUDY: wheeze COMPARISON: 06/19/2017 EXAM PARAMETERS: NUMBER OF VIEWS: One view. TECHNIQUE: Single frontal radiographic view of the chest acquired. RADIATION DOSE: NA LIMITATIONS: None. FINDINGS: LUNGS AND PLEURA: Left lateral basilar consolidation -effusion. Right lung appears clear. MEDIASTINUM AND HILAR STRUCTURES: Stable. HEART AND VASCULAR STRUCTURES: Stable. BONES: No acute findings. HARDWARE: None in the chest. OTHER: No other significant finding. IMPRESSION: Left lateral basilar consolidation -effusion. TECHNICAL DOCUMENTATION: JOB ID: [id number] [employer]- All Rights Reserved Reading location - IP/workstation name: [email or web address]
[2018-02-14] MEDS ORDERED: CYCLOBENZAPRINE HCL 10 MG TABLET PO ONE (23:58)
[2018-02-15] MEDS ORDERED: NORMAL SALINE 1000 ML 1,000 ML IV PRN (01:00)
[2018-02-15] MEDS ORDERED: PROMETHAZINE HCL INJ 25 MG/1 ML VIAL IV PRN (01:00)
[2018-02-15] MEDS ORDERED: ALBUTEROL SULFATE 0.083% NEB 2.5 MG/3 ML AMPUL NEB PRN ×2 (01:00→11:34)
[2018-02-15] MEDS: IPRATROPIUM/ALBUTEROL 0.5-2.5 MG/3 ML AMPUL NEB SCH ×2 (01:56→08:25)
[2018-02-15] MEDS ORDERED: POLYETHYLENE GLYCOL 3350 POWDER 17 GM/1 PACKET PO PRN (05:30)
--- NOTE | 2018-02-15 05:30 | PDOC H&P ---
History of Present Illness Admission Date/PCP: 02/15/18 00:38 TYRONE MONROY MD Patient complains of: Worsening generalized weakness and tremors since 1 PM. History of Present Illness: YANELIS ESPAÑA is a 77 year old female with history of dementia of Alzheimer's type , rheumatoid arthritis (on Plaquenil), COPD (not on home oxygen) and CHF was admitted with above-mentioned complaints. Some of the history was obtained from the patient's daughter at bedside. According to the patient, she has been having episodes of increased muscle spasm and tremors for the last 6 weeks or so. But around 1 PM yesterday, she started feeling very tremulous and the episode lasted more than 15 minutes. She also felt lightheaded but denied any loss of consciousness, dizziness or vertigo. She was nauseous but did not vomit. The patient also complained of having a very uncomfortable headache and some blurred vision. She had difficulty finding words to answer questions (which happens sometimes per daughter) but no slurred speech or dysphagia. She has chronic peripheral neuropathy but she denied any focal weakness. The patient also mentioned that she felt some chest "heaviness" yesterday morning which lasted for about an hour and improved after she used her rescue inhaler. It was associtated with shortness of breath, nonproductive cough, palpitations and chills but no fever or any sick contact. She denied any abdominal pain or diarrhea but complained of being constipated for the last 3 days, no urinary symptoms. She mentioned that she has been having increased leg swelling lately so her metolazone dose was changed from 2.5 mg every other day to daily in addition to Lasix 60 mg twice daily with improvement in herl leg edema. In the ED, her temperature was 97.6, heart rate 83, respiratory rate 17, blood pressure 133/36 with oxygen saturation of 96% on room air. Her WBC was 8.2 and her BUN/creatinine was 67/2.0 (up from 21/0.95 in 06/16/2017). Her glucose was 122. UA was negative chest x-ray showed left lateral basilar consolidation effusion. She received 10 mg Flexeril 1 and DuoNeb treatment 1. Past Medical History Medical History: Other - According to the patient and based on previous records. Cardiac Medical History: Reports: Congestive Heart Failure, Hyperlipidema, Hypertension Denies: Myocardial Infarction Pulmonary Medical History: Reports: Asthma, Chronic Obstructive Pulmonary Disease (COPD), Pneumonia Denies: Tuberculosis Neurological Medical History: Denies: Seizures Endocrine Medical History: Reports: Hypothyroidism Renal/ Medical History: Reports: Chronic Kidney Disease GI Medical History: Reports: Gastroesophageal Reflux Disease, Hiatal Hernia Denies: Hepatitis Musculoskeltal Medical History: Reports: Arthritis - RA, Other - peripheral neuropathy. chronic lower back pain. Psychiatric Medical History: Reports: Depression Hematology: Reports: Anemia Denies: Sickle Cell Disease Past Surgical History Past Surgical History: Reports: Hysterectomy, Tonsillectomy, Other - Bladder tuck 4-5 times. B/L cataracts. Denies: Amputation, Mastectomy, Pacemaker Social History Smoking Status: Former Smoker Cigarettes Packs Per Day: 0 - 3 packs a day for 30 years. She quit to 2530 years ago. Frequency of Alcohol Use: None Hx Recreational Drug Use: No Hx Prescription Drug Abuse: No - Advance Directive Resuscitation Status: Full Code Family History Family History: Reviewed & Not Pertinent Parental Family History Reviewed: Yes - Father: TB, mother: ND, brother 2: Cardiac disease. Children Family History Reviewed: No Sibling(s) Family History Reviewed.: Yes Medication/Allergy Home Medications: Atorvastatin Calcium [Lipitor 40 mg Tablet] 20 mg PO QHS 09/24/13 Furosemide [Lasix 40 mg Tablet] 40 mg PO QAM 09/24/13 Gabapentin [Neurontin] 800 mg PO TID 09/24/13 Levothyroxine Sodium [Synthroid 0.025 mg Tablet] 25 mcg PO DAILY 09/24/13 Montelukast Sodium [Singulair 10 mg Tablet] 10 mg PO DAILY 09/24/13 Sertraline HCl [Zoloft] 100 mg PO DAILY 09/24/13 Trazodone HCl [Desyrel] 200 mg PO QHS 09/24/13 Allopurinol 1 tab PO BID 09/25/13 Cholecalciferol (Vitamin D3) [Vitamin D3] 2,000 unit PO DAILY 09/25/13 Lisinopril 20 mg PO BID 07/03/14 Albuterol Sulfate [Ventolin 0.083% Neb 2.5 mg/3 mL Ampul] 1 vial NEB Q4 Budesonide/Formoterol Fumarate [Symbicort Hfa 160-4.5 Mcg Inhaler 6 gm] 2 puff IH Q12 04/21/15 Donepezil HCl [Aricept] 10 mg PO DAILY 04/21/15 Hydrocodone Bit/Acetaminophen [Hydrocodon-Acetaminophen 5-325] 1 each PO PRN PRN 04/21/15 Metoprolol Succinate [Toprol Xl] 50 mg PO DAILY 04/21/15 Potassium Chloride 10 meq PO DAILY 04/21/15 Tiotropium [place] [Spiriva Handihaler 18 mcg/dose (30 Dose)] 1 cap IH DAILY Tramadol HCl 50 mg PO DAILY 04/21/15 Cephalexin [Cephalexin 500 MG Tablet] 2 tab PO BID 04/27/15 Oxycodone HCl/Acetaminophen [Percocet 5-325 mg Tablet] 1 - 2 tab PO ASDIR PRN Promethazine HCl [Phenergan 25 mg Tablet] 25 - 50 mg PO ASDIR PRN 04/27/15 Oxycodone HCl/Acetaminophen [Percocet 5-325 mg Tablet] 1 - 2 tab PO ASDIR PRN # 15 tablet 01/30/17 Doxycycline Hyclate 100 mg PO BID #14 capsule 06/16/17 Prednisone [Deltasone 20 mg Tablet] 3 tab PO DAILY 5 Days tablet 06/16/17 Sulfamethoxazole/Trimethoprim [Bactrim Ds Tablet] 1 each PO BID #10 tablet 07/19 Allergies/Adverse Reactions: cefditoren [From Spectracef] Allergy (Verified 02/15/18 04:40) Review of Systems ROS unobtainable: Other - Pertinent positives and negatives as detailed in the HPI. Physical Exam Vital Signs: Temp Pulse Resp BP Pulse Ox 97.6 F 74 19 155/69 H 94 02/14/18 20:49 02/14/18 21:21 02/15/18 00:01 02/15/18 00:01 02/15/18 00:01 General appearance: PRESENT: no acute distress, well-developed, well-nourished Head exam: PRESENT: atraumatic, normocephalic Eye exam: PRESENT: PERRLA. ABSENT: nystagmus Mouth exam: PRESENT: moist Neck exam: PRESENT: full ROM. ABSENT: JVD Respiratory exam: PRESENT: decreased breath sounds, rales, rhonchi. ABSENT: wheezes Cardiovascular exam: PRESENT: RRR, +S1, +S2 Pulses: PRESENT: normal dorsalis pedis pul GI/Abdominal exam: PRESENT: normal bowel sounds. ABSENT: distended, rebound, rigid, tenderness Rectal exam: PRESENT: deferred Extremities exam: ABSENT: pedal edema Musculoskeletal exam: PRESENT: full ROM Neurological exam: PRESENT: alert, altered, awake, oriented to person, oriented to place, oriented to time, oriented to situation, CN II-XII grossly intact - excpt CNVIII, motor sensory deficit - Motor 4+/5 throughout. Decreased sensation bilateral leg secondary to chronic neuropathy. No Babinski or clonus. Gait was not assessed.. ABSENT: reflexes normal - hyperreflexia. Results Laboratory Results: CBC: WBC 8.2, hemoglobin 12.5, hematocrit 36.8, MCV 93, RDW 14.1, platelets 206. CMP: Sodium 139.1, potassium 3.1, chloride 94, bicarb 32, anion gap 13, BUN 67, creatinine 2.0, glucose 122, calcium 9.1, magnesium 1.6, AST 44, ALT 48, Troponin: negative x1. proBNP 462. UA: Negative EKG Comments: 12-lead EKG, sinus rhythm, ventricular rate 70, axis +55, QTC prolongation, trigeminy. Compared to a previous twelve-lead EKG done on the 2016, sinus rhythm, ventricular rate 65, axis +45, QTC prolongation first-degree AV block no acute changes. Impressions: Chest X-Ray 02/14/18 23:10 IMPRESSION: Left lateral basilar consolidation -effusion. Assessment & Plan - Diagnosis (1) Coarse tremors Is this a current diagnosis for this admission?: Yes Plan: Possibly secondary to gabapentin in the setting of the acute renal failure. She is usually on 600 mg 3 times daily. Will hold gabapentin for now and monitor. (2) CRISTOBAL (acute kidney injury) Is this a current diagnosis for this admission?: Yes Plan: on chronic with CKD stage 3 (BUN/creatinine was 21/0.95 on 06/16/2017) and/or this could be her new baseline creatinine. Her UA was negative. Will check urine osm, urine sodium, protein and creatinine, iPTH and phosphorus level. Will also check kidney ultrasound and avoid any nephrotoxic medications at this time. We will continue gentle hydration and monitor kidney function and urine output. (3) Trigeminy Is this a current diagnosis for this admission?: Yes Plan: which seems to be new. Will continue to monitor and replace electrolytes as indicated. Will repeat twelve-lead EKG and check an echocardiogram. (4) Essential hypertension Is this a current diagnosis for this admission?: Yes Plan: Holding lisinopril, Lasix and Metolazone for now. Her medications' list needs further clarification. (5) Chronic pain syndrome Is this a current diagnosis for this admission?: Yes Plan: The patient has chronic back pain. She takes Percocet 10/325 mg (x2 tabs) in AM and 1 tab in PM in addition to tramadol 50 mg twice a day in addition to Neurontin 600 mg 3 times daily. (6) Chronic CHF (congestive heart failure) Qualifiers: Heart failure type: unspecified Qualified Code(s): I50.9 - Heart failure, unspecified Is this a current diagnosis for this admission?: Yes Plan: CXR showed left lateral basilar consolidation-effusion. Will repeat a chest x- ray (PA and lateral). Per ED physician, he discussed her case with interventional radiology who agreed to do a left thoracentesis this a.m. Will follow up repeat chest x-ray and continue to hold all diuretics at this time. (7) Hypokalemia Is this a current diagnosis for this admission?: Yes Plan: and hypomagnesemia, will continue to replace electrolytes as indicated. (8) History of rheumatoid arthritis Is this a current diagnosis for this admission?: No Plan: On plaquenil which will continue. She follows with Dr. Jose as outpatient. - Time Time Spent: Greater than 70 Minutes - Inpatient Certification Based on my medical assessment, after consideration of the patient's comorbidities, presenting symptoms, or acuity I expect that the services needed warrant INPATIENT care.: Yes I certify that my determination is in accordance with my understanding of Medicare's requirements for reasonable and necessary INPATIENT services [42 CFR 412.3e].: Yes
[2018-02-15] MEDS: HEPARIN SOD (PORCINE) 5,000 UNIT/ML 1 ML SYRINGE SUBCUT SCH ×3 (06:51→22:14)
--- NOTE | 2018-02-15 08:18 | RADIOLOGY REPORT (SQ) ---
EXAM DESCRIPTION: U/S RETROPERITON LTD COMPLETED DATE/TIME: 02/15/2018 7:08 am REASON FOR STUDY: CRISTOBAL COMPARISON: None. TECHNIQUE: Dynamic and static grayscale images acquired of the kidneys and bladder and recorded on P ACS. Additional selected color Doppler and spectral images recorded. LIMITATIONS: None. FINDINGS: RIGHT KIDNEY: Normal size. Normal echogenicity. No solid or suspicious masses. No h ydronephrosis. No calcifications. LEFT KIDNEY: Normal size. Normal echogenicity. 13 mm cyst lower pole. No solid or suspicious ma sses. No hydronephrosis. No calcifications. BLADDER: No masses. OTHER FINDINGS: No other significant finding. IMPRESSION: 13 MM CYST LOWER POLE LEFT KIDNEY. OTHERWISE UNREMARKABLE RENAL AND BLADDER ULTRASOUND. NO OBSTRUCTIVE UROPATHY. TECHNICAL DOCUMENTATION: JOB ID: [id number] [employer]- All Rights Reserved Reading location - IP/workstation name: [email or web address]
--- NOTE | 2018-02-15 08:50 | PROGRESS NOTE E ---
Progress Note NAME: YANELIS ESPAÑA : 1940 AGE: 77Y DATE: 02/15/2018 ROOM: 413 SUBJECTIVE: The patient is currently lying in bed. She states that she feels much better in comparison to when she came in. The patient denies any tremors or any muscle spasms. The patient denies any nausea, vomiting, diarrhea. No shortness of breath, dizziness, chest pain. The patient has actually been able to ambulate to the bedside commode. The patient denies any fevers, chills. No cough. The patient has been afebrile. Blood pressure has been in the good range and the patient does not voice any other concerns at this time. REVIEW OF SYSTEMS: The rest of the review systems is negative. MEDICATIONS: Reviewed. OBJECTIVE: GENERAL: The patient is a 77-year-old female who is awake, alert and oriented to person, place, time and situation. She is a verbal conversationalist, does not appear to be in any acute distress. VITAL SIGNS: As follows: Temperature 97.9, pulse 91, respirations 18, blood pressure 154/80, oxygen saturation is 96% on room air. SKIN: Warm and dry. No rash, not diaphoretic. HEENT: Pupils equal, round, reactive to light and accommodation. Conjunctivae are pink. There is no evidence of JVP. CARDIOVASCULAR: Heart is regular. There is no murmur or rub. CHEST: Clear, symmetrical, unlabored. ABDOMEN: Soft, nontender, nondistended. BACK: No CVA tenderness. EXTREMITIES: No clubbing, cyanosis or edema. PSYCHIATRIC: Appropriate affect, pleasant mood. DIAGNOSTICS: Lab values are as follows: Hematology obtained on 02/14/2018: WBC 8.3, hemoglobin 12.5, hematocrit 36.8, platelet count 206,000. Chemistry obtained on 02/15/2018: Sodium 139, potassium 3.1, chloride 94, carbon dioxide 32, BUN 67, creatinine 2.0, glucose 122, calcium 9.1, magnesium 1.6, bilirubin 0.2, AST 44, ALT 48, alkaline phosphatase 83. IMPRESSION AND PLAN: 1. MUSCLE SPASMS AND TREMULOUSNESS. I do believe this is due to the patient's worsening renal function in the setting of Neurontin. However, we will add B12 and repeat electrolytes this morning and follow. 2. ACUTE KIDNEY INJURY. It appears that the patient's baseline creatinine is in the 0.95 range. We will continue to hydrate, repeat chemistry in the a.m. The patient's renal ultrasound was found to be unremarkable. 3. HYPERTENSION. Currently holding the patient's nephrotoxic medications. Blood pressure is slightly elevated, but in acceptable range at this time. 4. CHRONIC PAIN SYNDROME. Continue the patient's other home medications and follow. 5. HYPOKALEMIA. This is mild, we will replete. 6. HYPOMAGNESEMIA. We will replete. 7. RHEUMATOID ARTHRITIS. We will continue the patient's home medications. She is followed by Dr. Jose on an outpatient basis. 8. PLEURAL EFFUSION. Uncertain of the exact etiology of this. The patient does not appear to be in any sort of respiratory distress at this time or compromise. She is not requiring O2, is able to fully complete sentences. This can be worked up on an outpatient basis. DISPOSITION: The patient is a FULL CODE. Pending patient's symptomatology and diagnostic findings, will reevaluate in the a.m. Time spent on this followup including assessment, plan, physical examination, patient education, and review of records is 30 minutes. DICTATING PHYSICIAN: ERICA MENSAH NP [id number] Y#: [id number] ID: [id number] JOB#: [id number] ACCT: [id number] cc: >
--- NOTE | 2018-02-15 09:23 | EKG REPORT ---
SEVERITY:- ABNORMAL ECG - SINUS RHYTHM MULTIPLE PREMATURE COMPLEXES, VENT BORDERLINE T ABNORMALITIES, ANTERIOR LEADS : Confirmed by: Singh Conklin 15-Feb-2018 09:22:57
--- NOTE | 2018-02-15 09:24 | EKG REPORT ---
SEVERITY:- ABNORMAL ECG - SINUS RHYTHM VENTRICULAR TRIGEMINY NONSPECIFIC INTRAVENTRICULAR CONDUCTION DELAY : Confirmed by: Singh Conklin 15-Feb-2018 09:23:09
[2018-02-15] MEDS ORDERED: POTASSIUM CHLORIDE 10 MEQ TABLET.SA PO ONE ×3 (10:00→16:00)
--- NOTE | 2018-02-15 10:01 | RADIOLOGY REPORT (SQ) ---
EXAM DESCRIPTION: CHEST 2 VIEWS COMPLETED DATE/TIME: 02/15/2018 9:36 am REASON FOR STUDY: left pleural effusion/infiltate. COMPARISON: 10/12/2016 EXAM PARAMETERS: NUMBER OF VIEWS: two views TECHNIQUE: Digital Frontal and Lateral radiographic views of the chest acquired. RADIATION DOSE: NA LIMITATIONS: none FINDINGS: LUNGS AND PLEURA: No new opacities, masses or pneumothorax. No pleural effusion. MEDIASTINUM AND HILAR STRUCTURES: No masses or contour abnormalities. HEART AND VASCULAR STRUCTURES: Heart stable size. No evidence for failure. BONES: No acute findings. HARDWARE: None in the chest. OTHER: No other significant finding. IMPRESSION: NO ACUTE RADIOGRAPHIC FINDING IN THE CHEST. TECHNICAL DOCUMENTATION: JOB ID: [id number] [employer]- All Rights Reserved Reading location - IP/workstation name: [email or web address]
[2018-02-15 10:27] LABS: ANION GAP 12 (5-19); CARBON DIOXIDE 32 mmol/L (22-30); CHLORIDE 100 mmol/L (98-107); GLUCOSE 147 mg/dL (75-110); PHOSPHORUS 3.6 mg/dL (2.5-4.5); SODIUM 144.4 mmol/L (137-145)
[2018-02-15 10:34] LABS: BLOOD UREA NITROGEN 46 mg/dL (7-20)
[2018-02-15 10:36] LABS: POTASSIUM 2.9 mmol/L (3.6-5.0)
[2018-02-15] MEDS: ACETAMINOPHEN 325 MG TABLET PO PRN ×2 (12:14→20:24)
[2018-02-15] MEDS ORDERED: ALBUTEROL SULFATE HFA (90 MCG/PUFF) 200 PUFF/8.5 GM MDI IH PRN (13:47)
[2018-02-15] MEDS ORDERED: DOXYCYCLINE HYCLATE 100 MG TABLET PO ONE (14:00)
[2018-02-15] MEDS ORDERED: AMLODIPINE BESYLATE 5 MG TABLET PO ONE (15:00)
[2018-02-15] MEDS: HYDROCODONE/ACETAMINOPHEN 7.5-325 MG TABLET PO PRN (15:06)
--- NOTE | 2018-02-15 16:14 | CONSULTATION REPORT E ---
Consultation Report NAME: YANELIS ESPAÑA : 1940 AGE: 77Y DATE: 413 A TO: NILO ANDINO M.D. FROM: ZAFAR POTTER M.D. Requesting Physician REASON FOR CONSULTATION: A 77-year-old female who came in with increased muscle spasms and tremors worsening for the last 6 weeks. She claimed that she had these episodes about 2 times in the past and this is her third time. Usually it goes away. The symptoms were worse yesterday, hence, the patient came to the Emergency Room and got admitted. Consulted because of a suspicious pleural effusion. Patient has a history of congestive heart failure, history of rheumatoid arthritis. The patient claimed that she has been coughing yellow green phlegm over the last 3 days but no fever and no hemoptysis. No nausea, vomiting, or diarrhea. No chest pain. No increased shortness of breath. She is seeing another electrical transmission engineer, Dr. Hunter Pimentel in [place] for COPD. She claims she might have had a chest CT scan there, but she is not sure. She claimed that it was unremarkable. Again, she had a chest x-ray today this morning showing absence of infiltrate or acute findings and does not show any significant pleural effusion. PAST MEDICAL HISTORY: Same as above. History of congestive heart failure, hyperlipidemia, hypertension, has a history of asthma and COPD. Denies history of seizures. Has a history of hypothyroidism, chronic kidney disease, gastroesophageal reflux, history of depression, anemia, and rheumatoid arthritis. SURGICAL HISTORY: Hysterectomy, tonsillectomy, bladder tap 4 or 5 times, and bilateral cataract surgery. SOCIAL HISTORY: Former smoker. Smoked about 0-3 packs a day for 30 years. She quit about 25-30 years ago. Denies any alcohol abuse or illicit drug use. FAMILY HISTORY: Mother had IA, father has tuberculosis, brother has cardiac disease. MEDICATIONS: Lipitor, Lasix 40 mg daily, gabapentin, Synthroid, Singulair, Zoloft, trazodone, allopurinol, vitamin D3, lisinopril, albuterol, Symbicort, donepezil, hydrocodone, metoprolol, potassium, Spiriva, tramadol, oxycodone, Phenergan, doxycycline, prednisone, and sulfa for 10 days. ALLERGIES: CEFDITOREN. REVIEW OF SYSTEMS: CONSTITUTIONAL: No fever or chills. EYES: No blurry vision and no eye pain. EARS, NOSE, AND THROAT: No ear drainage or nasal discharge. HEAD AND NECK: No scalp tenderness or neck pain. CHEST AND LUNGS: Complaining about coughing, yellow/green phlegm for the last 2-3 days. No hemoptysis. No increased shortness of breath. CARDIOVASCULAR: No chest pain. Has a history of congestive heart failure. No arrhythmia, no history of arrhythmias, or atrial fibrillation. GASTROINTESTINAL: No nausea, vomiting, or diarrhea. GENITOURINARY: No dysuria, hematuria. EXTREMITIES: No joint swelling, and no cellulitis. PHYSICAL EXAMINATION: GENERAL: The patient is awake, alert, oriented x3. VITAL SIGNS: Temperature is 98 degrees Fahrenheit, pulse 78, blood pressure is 143/80, respiratory rate 18, saturation is 94% on room air. EYES: No jaundice or pallor. EARS, NOSE, AND THROAT: No ear drainage noted. No nasal discharge. HEAD AND NECK: No scalp swelling and no neck tenderness. CHEST/LUNGS: No wheezing, no rhonchi, no coarse crackles. CARDIOVASCULAR: S1 and S2 is distinct. Normal rate, regular rhythm. ABDOMEN: Flabby, positive bowel sounds. Soft, nondistended, nontender. EXTREMITIES: No joint swelling or cellulitis. LABORATORY DATA: CBC done yesterday showed white count of 8.2, hemoglobin 12.5, hematocrit 36.8, platelet count is 206. Chemistry done today showed sodium 144, potassium 2.9, chloride 100, CO2 32, BUN 46, creatinine 1.21. Calcium 9, phosphorus 3.6, and magnesium is 1.6. Troponin are unremarkable. NT-BNP is 462. Albumin is 4.1. Chest x-ray done early this morning showed mild cardiomegaly. No infiltrate on the right side or pleural effusion or congestion. On the left side there is mild dehiscence in the left lower lobe but no apparent pleural effusion. Reported today as no pleural effusion. ASSESSMENT: 1. Possible pleural effusion which was reported last night in the left lower lobe. Today's chest x-ray did not show any significant pleural effusion. If there is a pleural effusion it may be minimal and which does not need any thoracentesis at this time. This may be followed as an outpatient. 2. History of chronic obstructive pulmonary disease, currently stable and not active exacerbation. 3. Bronchitis with increased cough with purulence production over the last 3 days. I would recommend antibiotic. PLAN: 1. Recommend oral antibiotics for the next 7 days. 2. Recommend pulmonary followup with the patient's own electrical transmission engineer, Dr. Pimentel. 3. We will sign off today. If you have any questions, please feel free to call me. DICTATING PHYSICIAN: NILO ANDINO MD,MIRIAM,MPH [id number] PHY#: [id number] ID: [id number] JOB#: [id number] ACCT: [id number] cc:NILO ANDINO M.D. > MTDD
[2018-02-15] MEDS: FERROUS SULFATE 325 MG TABLET PO SCH (16:50)
[2018-02-15] MEDS ORDERED: ATORVASTATIN CALCIUM 40 MG TABLET PO SCH (22:00)
[2018-02-15] MEDS ORDERED: (PENDING PHARMACY ID) (Donepezil Hcl [Aricept] 10 MG) PO SCH (22:00)
[2018-02-15] MEDS ORDERED: DONEPEZIL HCL 5 MG TABLET PO SCH (22:00)
[2018-02-15] MEDS: CYCLOSPORINE 0.05% OPH EMULSIO 0.4 ML DROPERETTE OU SCH (22:14)
[2018-02-15] MEDS ORDERED: TRAZODONE HCL 50 MG TABLET PO ONE (23:00)
[2018-02-16] MEDS: HYDROCODONE/ACETAMINOPHEN 7.5-325 MG TABLET PO PRN (02:51)
[2018-02-16] MEDS ORDERED: LISINOPRIL 10 MG TABLET PO ONE (04:15)
[2018-02-16] MEDS ORDERED: ALPRAZOLAM 0.25 MG TABLET PO ONE (04:15)
[2018-02-16] MEDS: HEPARIN SOD (PORCINE) 5,000 UNIT/ML 1 ML SYRINGE SUBCUT SCH (04:47)
[2018-02-16] MEDS ORDERED: LANSOPRAZOLE 30 MG TAB.RAP.DR PO SCH (06:00)
[2018-02-16] MEDS ORDERED: LEVOTHYROXINE SODIUM 0.112 MG TABLET PO SCH (06:00)
[2018-02-16 06:24] LABS: HEMATOCRIT 36.8 % (36.0-47.0); HEMOGLOBIN 12.5 g/dL (12.0-15.5); MEAN CORPUSCULAR HEMOGLOBIN 31.2 pg (27.0-33.4); MEAN CORPUSCULAR VOLUME 92 fl (80-97); PLATELET COUNT 181 10^3/uL (150-450); RED BLOOD COUNT 4.02 10^6/uL (3.72-5.28); WHITE BLOOD COUNT 7.4 10^3/uL (4.0-10.5)
[2018-02-16 06:58] LABS: ANION GAP 13 (5-19); CALCIUM 10.2 mg/dL (8.4-10.2); CARBON DIOXIDE 30 mmol/L (22-30); CHLORIDE 105 mmol/L (98-107); GLUCOSE 109 mg/dL (75-110); PHOSPHORUS 3.1 mg/dL (2.5-4.5); SODIUM 147.9 mmol/L (137-145)
[2018-02-16 07:25] LABS: BLOOD UREA NITROGEN 26 mg/dL (7-20)
[2018-02-16] MEDS: FERROUS SULFATE 325 MG TABLET PO SCH (09:10)
[2018-02-16] MEDS: CYCLOSPORINE 0.05% OPH EMULSIO 0.4 ML DROPERETTE OU SCH (09:10)
[2018-02-16] MEDS ORDERED: TIOTROPIUM BROMIDE DPI 5 CAP/KIT (18 MCG/CAP) IH SCH (10:00)
[2018-02-16] MEDS ORDERED: SERTRALINE HCL 50 MG TABLET PO SCH (10:00)
[2018-02-16] MEDS ORDERED: (PENDING PHARMACY ID) (Sertraline Hcl [Zoloft] 25 MG) PO SCH (10:00)
[2018-02-16] MEDS ORDERED: DOXYCYCLINE HYCLATE 100 MG TABLET PO SCH (10:00)
[2018-02-16] MEDS ORDERED: FOLIC ACID 1 MG TABLET PO SCH (10:00)
[2018-02-16] MEDS ORDERED: AMLODIPINE BESYLATE 5 MG TABLET PO SCH (10:00)
[2018-02-16 10:17] VITALS: BP 164/72
--- NOTE | 2018-02-16 11:34 | DISCHARGE SUMMARY E ---
Discharge Summary NAME: YANELIS ESPAÑA : 1940 AGE: 77Y ADMITTED: 02/15/2018 DISCHARGED: 02/16/2018 CODE STATUS: FULL CODE. PRIMARY CARE PROVIDER: Dr. William Garcia. DISCHARGE DIAGNOSES: Includes: 1. Acute kidney injury which is now resolved. 2. Muscle spasms and tremulous secondary to #1 in the setting of Neurontin. 3. Hypertension. 4. Chronic pain syndrome. 5. Hypokalemia. This was repleted. 6. Hypomagnesemia. This was repleted. 7. Rheumatoid arthritis. 8. Chronic obstructive pulmonary disease. 9. Acute bronchitis. 10. Congestive heart failure as per patient's given history. Unable to further classify. DISCHARGE MEDICATIONS: Include: 1. Neurontin 300 mg p.o. q.12 hours. This is a decreased dosage. 2. Doxycycline 100 mg p.o. daily, 12 tablets with 0 refills. 3. Ultram 50 mg p.o. q.12 hours p.r.n. 4. Spiriva 1 puff inhalation daily. 5. Zoloft 25 mg p.o. daily. 6. Potassium chloride 10 mEq p.o. daily. 7. Protonix 40 mg p.o. daily. 8. Methotrexate 12.5 mg p.o. q.7 days. 9. Lisinopril 40 mg p.o. daily. 10. Synthroid 0.168 mg p.o. daily. 11. Vicodin 7.5 mg 1 tablet p.o. q.8 hours p.r.n. 12. Folic acid 1 mg p.o. daily. 13. Ferrous sulfate 325 mg p.o. b.i.d. 14. Aricept 10 mg p.o. q. hour of sleep. 15. Restasis 1 drop in both eyes q.12 hours. 16. Lipitor 40 mg p.o. q. hour of sleep. 17. Norvasc 5 mg p.o. daily. 18. Allopurinol 100 mg p.o. b.i.d. 19. ProAir HFA 2 puffs inhalation q.6 hours p.r.n. 20. Lasix 40 mg p.o. daily. DIET: Heart healthy. ACTIVITY: As tolerated. CONDITION: Good. DIAGNOSTICS: Lab values are as follows: Hematology obtained on 02/16/2018: WBC is 7.4, hemoglobin 12.5, hematocrit 36.8, platelet count is 181,000. Chemistries obtained on 02/16/2018, sodium is 147, potassium is 4.0, chloride is 105, carbon dioxide 30, BUN 26, creatinine 0.81, glucose 109, calcium is 10.2, phosphorus 3.1, magnesium is 1.7. Troponin is 0.012. Bilirubin 0.2, AST 44, ALT 48, alk phos 83. Total CK 139, CKMB is 2.63. Troponin 0.012. BNP is 462. Total protein 6.0, albumin 4.1. B12 is 885. PTH is 61.1. Urinalysis obtained on 02/14/2018, color yellow, appearance clear, pH is 5.0, specific gravity is 1.006, protein negative, glucose negative, ketones negative, occult blood negative, nitrite negative, bili negative, urobilinogen is negative, leukocyte esterase is negative, RBC 0, casts 0, mucous rare, osmolality 275, ascorbic acid 40. Chest x-ray obtained on 02/14/2018 revealed left lateral basilar consolidation suggestive of effusion. Renal ultrasound obtained on 02/15/2018 revealed a cyst in the lower pole of the left kidney, otherwise unremarkable. Chest x-ray obtained on 02/15/2018 revealed no acute radiographic finding of the chest. EKG obtained on 02/14/2018 revealed sinus rhythm with evidence of trigeminy. EKG obtained on 02/15/2018 revealed sinus rhythm. PHYSICAL EXAMINATION: GENERAL: On examination, the patient is a well-developed, well-nourished 77-year-old female who is awake, alert and oriented to person, place, time, and situation. She is verbal and conversational. Ambulatory. Does not appear to be distressed. VITAL SIGNS: Temperature 98.5, pulse 86, respirations 18, blood pressure 157/88, oxygen saturation 96% on room air. SKIN: Warm and dry, no rashes. She is not diaphoretic. HEENT: Pupils equal, round and reactive to light and accommodation. Conjunctivae pink. No evidence of JVP. CARDIOVASCULAR: Heart is regular. There is no murmur or rub. CHEST: Clear, symmetrical unlabored. ABDOMEN: Soft, nontender, nondistended. BACK: No CVA tenderness or sacral edema. EXTREMITIES: No clubbing, cyanosis, edema. PSYCHIATRIC: Appropriate affect, pleasant mood. HISTORY OF PRESENT ILLNESS: The patient is a 77-year-old female with a past medical history of dementia, rheumatoid arthritis, COPD that is not oxygen dependent. The patient presented to the emergency department with a chief complaint of worsening generalized weakness and tremors since approximately 1:00 p.m. the morning prior to presentation. According to the patient, she had been having increased episodes of multiple spasms and tremors for the past 6 weeks. About 3 weeks ago, she also started producing some yellow sputum. However, the day before presentation the patient stated that her tremulousness was to the point that she could not control it and had an episode of 15 minutes straight of just shaking. The patient felt lightheaded but not any loss of consciousness, dizziness, no vertigo. The patient was nauseous but did not have any vomiting. The patient also complained of having very uncomfortable headache with difficulty in finding words, but no slurring of speech, no dysphagia, no unilateral symptomatology. The patient's chronic peripheral neuropathy is present but denied any focal weakness. The patient also mentioned feeling some heaviness in her chest and used a rescue inhaler. It was associated with some shortness of breath. According to the patient, she had been having some increasing leg swelling, so she was increased on her dose of metolazone. The patient was also on Lasix at home. Upon presentation to the emergency department, the patient was found to be afebrile, normotensive. However, her creatinine was found to be 2.0 and the patient was also found to be on 1200 mg of Neurontin. Given these findings, the patient was referred to the hospitalist for admission and management. HOSPITAL COURSE: Patient was admitted to continuous telemetry unit. The patient was gently hydrated. The patient's creatinine resolved to baseline of 0.9. The patient's potassium did require repletion during her stay for which the patient tolerated without issue. The patient does not like being in the hospital and was quite eager for discharge. The patient's initial chest x-ray was suggestive of possible consolidation of the left lower lobe; therefore, Dr. Lai with Pulmonology was consulted and repeat chest x-ray was not consistent with this. Therefore, did not feel the patient actually had a pleural effusion but the patient does have evidence of bronchitis with sputum production. Was recommended the patient complete a course of doxycycline. The patient can follow this up on an outpatient basis. It appears the patient's presentation records noted history of CHF, however, there is no echo on file and the patient is unable to provide more information on this matter. Furthermore, there is discrepancy regarding Lasix in that at one point she is taking 60 mg twice daily whereas others it is 40 mg daily and according to external pharmacy records the patient does not take Lasix at all and only is on metolazone. Given that the metolazone is what has changed in the last couple of weeks, the plan has been decided for the patient to hold metolazone for now and continue whatever her home Lasix dosage may be and the patient is adamant that she will follow up with her primary care provider in the next few days which this is absolutely reasonable. The patient's home medications otherwise have been resolved. The Neurontin has been resumed at a decreased dosage and the patient has been instructed to withhold metolazone for now and to resume her other home medications. The patient is in agreeance to this plan. DISCHARGE PLAN: The patient is advised to follow up with primary care provider within 1 week for hospital followup. Time spent on this discharge including assessment, plan, physical examination, patient education, review of records, is 25 minutes. DICTATING PHYSICIAN: ERCIA MENSAH NP [id number] PHY#: [id number] ID: [id number] JOB#: [id number] ACCT: [id number] cc:Elo BURDICK NP > MTDD
[2018-02-16] MEDS ORDERED: LISINOPRIL 10 MG TABLET PO SCH (18:00)
[2018-02-16] MEDS ORDERED: TRAZODONE HCL 50 MG TABLET PO SCH (22:00)
[2018-02-17] MEDS ORDERED: METHOTREXATE SODIUM 2.5 MG TABLET PO SCH (10:00)
== END 2018-02-16 10:15 | disposition home or self-care (01) | DRG 683 ==
LOC: ER 20:15 → EH 02-15 00:38 → 4N 02-15 02:33
PROVIDERS: ADMIT Internal Medicine Geriatric Medicine; ATTEND Internal Medicine Geriatric Medicine
PROC: 3E0F73Z Introduction of Anti-inflammatory into Respiratory Tract, Via Natural or Artificial Opening (ICD-10-PCS; principal; 2018-02-15)
DX: N17.9 Acute kidney failure, unspecified (principal); J44.0 Chronic obstructive pulmonary disease with (acute) lower respiratory infection; M62.838 Other muscle spasm; G89.4 Chronic pain syndrome; E87.6 Hypokalemia; E83.42 Hypomagnesemia; M06.9 Rheumatoid arthritis, unspecified; J20.9 Acute bronchitis, unspecified; I13.10 Hypertensive heart and chronic kidney disease without heart failure, with stage 1 through stage 4 chronic kidney disease, or unspecified chronic kidney disease; N28.1 Cyst of kidney, acquired; G62.9 Polyneuropathy, unspecified; I50.9 Heart failure, unspecified; E78.00 Pure hypercholesterolemia, unspecified; N18.9 Chronic kidney disease, unspecified; K21.9 Gastro-esophageal reflux disease without esophagitis; F32.9 Major depressive disorder, single episode, unspecified; D63.1 Anemia in chronic kidney disease; G30.9 Alzheimer's disease, unspecified; F02.80 Dementia in other diseases classified elsewhere, unspecified severity, without behavioral disturbance, psychotic disturbance, mood disturbance, and anxiety; E03.9 Hypothyroidism, unspecified; I45.81 Long QT syndrome; I44.0 Atrioventricular block, first degree; R00.8 Other abnormalities of heart beat; M19.90 Unspecified osteoarthritis, unspecified site; Z79.899 Other long term (current) drug therapy; Z90.710 Acquired absence of both cervix and uterus; Z87.891 Personal history of nicotine dependence; Z88.1 Allergy status to other antibiotic agents; Z82.49 Family history of ischemic heart disease and other diseases of the circulatory system
CPT/HCPCS: 36415; 71045; 71046; 76775; 80048; 80053; 81001; 82550; 82553; 82607; 83735; 83880; 83935; 83970; 84100; 84132; 84484; 85025; 85027; 93005; 93010; 94640; 96360; 99285; J1644; J3490; J7030; J7620

== ENCOUNTER → 2018-04-22 | Outpatient (CLI) | payer MEDICARE, OTHER ==
--- NOTE | 2018-04-22 15:15 | WOMENS IMAGING REPORT ---
EXAM DESCRIPTION: BONE DENSITY HIP/SPINE COMPLETED DATE/TIME: 04/22/2018 2:30 pm REASON FOR STUDY: OSTEOPOROSIS Z12.31 ENCNTR SCREEN MAMMOGRAM FOR MALIGNANT NEOPLASM OF CHRIS M81.0 AGE-RELATED OSTEOPOROSIS W/O CURRENT PATHOLOGICAL FRAC COMPARISON: None. TECHNIQUE: Dual-Energy X-ray Absorptiometry (DEXA) of the AP Spine and Hip. LIMITATIONS: None. FINDINGS: LUMBAR SPINE: The bone mineral density (BMD) measured from L1-L4 in the AP projection correlates with a T-score of 2.5, which is normal as defined by the World Health Organization. HIP: The bone mineral density (BMD) measured in the left hip correlates with a T-score of -1.8 in the femo ral neck, which is osteopenia as defined by the World Health Organization. IMPRESSION: 1. LUMBAR SPINE: Normal 2. HIP: Osteopenia COMMENT: The World Health Organization defines low BMD as follows: T-score: Normal: Greater than -1.0 Osteopenia: Between -1.0 and -2.5 Osteoporosis: Less than -2.5 without fractures Established osteoporosis: Less than -2.5 with fractures In general, you may wish to consider: Diagnosis Treatment Follow-up DEXA Normal BMD Prevention 2-3 years Osteopenia Prevention/Therapy 1-2 years Osteoporosis Therapy Yearly TECHNICAL DOCUMENTATION: JOB ID: [id number]- All Rights Reserved Reading location - IP/workstation name: [email or web address]
--- NOTE | 2018-04-23 17:01 | WOMENS IMAGING REPORT ---
EXAM DESCRIPTION: 3D SCREENING MAMMO BILAT COMPLETED DATE/TIME: 04/22/2018 2:30 pm REASON FOR STUDY: SCREENING MAMMO Z12.31 ENCNTR SCREEN MAMMOGRAM FOR MALIGNANT NEOPLASM OF CHRIS M81. 0 AGE-RELATED OSTEOPOROSIS W/O CURRENT PATHOLOGICAL FRAC COMPARISON: 2010 to 2016 TECHNIQUE: Standard craniocaudal and mediolateral oblique views of each breast recorded using digita l acquisition and breast tomosynthesis. LIMITATIONS: None. FINDINGS: No masses, calcifications or architectural distortion. No areas of suspicion. Read with the assistance of CAD. .[facility] - R2 Cenova Version 1.3 .[facility]IC [facility] - R2 Cenova Version 1.3 .[facility] - R2 Cenova Version 2.4 .[facility] [place] Cenova Version 2.4 .[facility] - R2 Speeder Machine Operator Version 9.2 IMPRESSION: NORMAL MAMMOGRAM. BIRADS 1. BREAST DENSITY: b. There are scattered areas of fibroglandular density. BIRAD: 1 NEGATIVE RECOMMENDATION: ROUTINE SCREENING COMMENT: The patient has been notified of the results by letter per SA requirements. Additional no tification policies are in place for contacting patient with suspicious or incomplete findings. Quality ID #[id number]: The [employer] recommends an annual screening mammogram for women aged 40 years or over. This facility utilizes a reminder system to ensure that all patients receive reminder letters, and/or direct phone calls for appointments. This includes reminders for routine scr eening mammograms, diagnostic mammograms, or other Breast Imaging Interventions when appropriate. Th is patient will be placed in the appropriate reminder system. The [employer] (ACR) has developed recommendations for screening MRI of the breast s in certain patient populations, to be used in conjunction with mammography. Breast MRI surveillanc e may be appropriate for women with more than 20% lifetime risk of developing breast cancer as deter mined by genetic testing, significant family history of the disease, or history of mantle radiation f or Hodgkins Disease. ACR Practice Guidelines 2008. DBT Technology DBT is a type of tomographic mammography. With conventional mammography, overlapping breast tissue ma y make lesions difficult to detect, even with good compression. DBT uses an x-ray tube that rotates a round the breast, taking images at different angles. These images are then combined to create thin sl ices of the breast that the radiologist can view as a 3D reconstruction. The Camera360 unit can perform full-field digital mammograms (2D imaging); or DBT (3D imaging); or both, in a combination mode that quickly performs both the mammogram and the tomosynthesis scan while the breast is still compressed. PQRS 6045F: Fluoroscopic imaging is not utilized for breast tomosynthesis. TECHNICAL DOCUMENTATION: FINDING NUMBER: (1) ASSESSMENT: (1) JOB ID: [id number] [employer]- All Rights Reserved Reading location - IP/workstation name: [email or web address]
== END ==
LOC: WI 13:17
PROVIDERS: ATTEND Internal Medicine
DX: Z12.31 Encounter for screening mammogram for malignant neoplasm of breast (principal); M81.0 Age-related osteoporosis without current pathological fracture
CPT/HCPCS: 77063; 77067; 77080

== ENCOUNTER 2018-09-02 14:15 | Emergency (ER) | payer MEDICARE, OTHER ==
--- NOTE | 2018-09-02 14:46 | RADIOLOGY REPORT (SQ) ---
EXAM DESCRIPTION: CT HEAD WITHOUT COMPLETED DATE/TIME: 09/02/2018 2:37 pm REASON FOR STUDY: fall , hit head on glass door broke glass neck pn COMPARISON: 06/07/2016 TECHNIQUE: Axial images acquired through the brain without intravenous contrast. Images reviewed wi th bone, brain and subdural windows. Additional sagittal and coronal reconstructions were generated. Images stored on PACS. All CT scanners at this facility use dose modulation, iterative reconstruction, and/or weight based d osing when appropriate to reduce radiation dose to as low as reasonably achievable (ALARA). [facility]: Dose Right [facility]: CareDose [facility]: Dose Right [facility]: Teradose 4D [facility]: Preferred [employer] RADIATION DOSE: CT Rad equipment meets quality standard of care and radiation dose reduction techniq ues were employed. CTDIvol: 53.2 mGy. DLP: 1017 mGy-cm. mGy. LIMITATIONS: None. FINDINGS: VENTRICLES: Prominent. CEREBRUM: No masses. No hemorrhage. No midline shift. Areas of low density in the white matter mos t likely due to chronic micro-vascular ischemic change. No evidence for acute infarction. CEREBELLUM: No masses. No hemorrhage. No alteration of density. No evidence for acute infarction. EXTRAAXIAL SPACES: Mild age-related involutional change. No fluid collections. No masses. ORBITS AND GLOBE: No intra- or extraconal masses. Normal contour of globe without masses. CALVARIUM: No fracture. PARANASAL SINUSES: No fluid or mucosal thickening. SOFT TISSUES: No mass or hematoma. OTHER: No other significant finding. IMPRESSION: MILD CHRONIC CHANGES OF ATROPHY AND MICROVASCULAR ISCHEMIA. NO ACUTE PROCESS. EVIDENCE OF ACUTE STROKE: NO. TECHNICAL DOCUMENTATION: JOB ID: [id number] Quality ID # [id number]: Final reports with documentation of one or more dose reduction techniques (e.g., Au tomated exposure control, adjustment of the mA and/or kV according to patient size, use of iterative reconstruction technique) 2010 [employer]- All Rights Reserved Reading location - IP/workstation name: [email or web address]
--- NOTE | 2018-09-02 15:05 | RADIOLOGY REPORT (SQ) ---
EXAM DESCRIPTION: CT CERVICAL SPINE WITHOUT COMPLETED DATE/TIME: 09/02/2018 2:37 pm REASON FOR STUDY: fall, head and neck pain COMPARISON: 01/30/2017 TECHNIQUE: Axial images acquired through the cervical spine without intravenous contrast. Images re viewed with lung, soft tissue and bone windows. Reconstructed coronal and sagittal MPR images review ed. Images stored on PACS. All CT scanners at this facility use dose modulation, iterative reconstruction, and/or weight based d osing when appropriate to reduce radiation dose to as low as reasonably achievable (ALARA). [facility]: Dose Right [facility]: CareDose [facility]: Dose Right [facility]: Teradose 4D [facility]: [employer] RADIATION DOSE: CT Rad equipment meets quality standard of care and radiation dose reduction techniq ues were employed. CTDIvol: 15.8 mGy. DLP: 354 mGy-cm. mGy. LIMITATIONS: None. FINDINGS: ALIGNMENT: Stable. MINERALIZATION: Normal. VERTEBRAL BODIES: No fractures or dislocation. DISCS: Multilevel disc space narrowing with osteophytes. FACETS, LATERAL MASSES, POSTERIOR ELEMENTS: Facet arthropathy. No fractures. No dislocation. No ac [place] findings. HARDWARE: None in the spine. VISUALIZED RIBS: No fractures. LUNG APICES AND SOFT TISSUES: No significant or acute findings. OTHER: No other significant finding. IMPRESSION: CHRONIC DEGENERATIVE CHANGES. NO ACUTE FINDINGS. TECHNICAL DOCUMENTATION: JOB ID: [id number] Quality ID # [id number]: Final reports with documentation of one or more dose reduction techniques (e.g., Au tomated exposure control, adjustment of the mA and/or kV according to patient size, use of iterative reconstruction technique) 2010 [employer]- All Rights Reserved Reading location - IP/workstation name: [email or web address]
--- NOTE | 2018-09-02 15:18 | RADIOLOGY REPORT (SQ) ---
EXAM DESCRIPTION: KNEE LEFT 4 VIEW COMPLETED DATE/TIME: 09/02/2018 2:48 pm REASON FOR STUDY: fall, pain left knee COMPARISON: None. NUMBER OF VIEWS: Four views. TECHNIQUE: AP, lateral, and both oblique radiographic images acquired of the left knee. LIMITATIONS: None. FINDINGS: MINERALIZATION: Normal. BONES: No acute fracture or dislocation. No worrisome bone lesions. JOINT: Small joint effusion. Small posterior patellar spurs. SOFT TISSUES: No soft tissue swelling. No radio-opaque foreign body. OTHER: No other significant finding. IMPRESSION: Mild patellofemoral degenerative joint changes. Small joint effusion. If there is conc lencho for internal derangement, MRI would be recommended. TECHNICAL DOCUMENTATION: JOB ID: [id number] [email or web address]- All Rights Reserved Reading location - IP/workstation name: [email or web address]
--- NOTE | 2018-09-02 15:49 | ER Document Report ---
HPI - HPI Patient complains to provider of: fell on left knee Onset: This morning Pain Level: 4 Context: 78 yo female tripped on rug and hit left knee on the ground, then head on door. c/o mild headache and neck soreness. Most pain is in the knee, it is swollen. No LOC. Associated Symptoms: None Exacerbated by: Movement Relieved by: Denies - ROS ROS below otherwise negative: Yes Systems Reviewed and Negative: Yes All other systems reviewed and negative - REPRODUCTIVE Reproductive: DENIES: : Past Medical History - General Information source: Patient - Social History Smoking Status: Never Smoker Lives with: Family - daughter Family History: Reviewed & Not Pertinent - Past Medical History Cardiac Medical History: Reports: Hx Congestive Heart Failure, Hx Hypercholesterolemia, Hx Hypertension Pulmonary Medical History: Reports: Hx Asthma, Hx COPD, Hx Pneumonia Endocrine Medical History: Reports: Hx Hypothyroidism GI Medical History: Reports: Hx Gastroesophageal Reflux Disease, Hx Hiatal Hernia Musculoskeletal Medical History: Reports Hx Arthritis - RA Psychiatric Medical History: Reports: Hx Depression Past Surgical History: Reports: Hx Genitourinary Surgery - BLADDER SURGERIES, Hx Hysterectomy, Hx Tonsillectomy, Hx Urinary Tract Surgery, Other - Bladder tuck 4-5 times. B/L cataracts. - Immunizations Hx Diphtheria, Pertussis, Tetanus Vaccination: Yes Hx Pneumococcal Vaccination: 10/28/11 Vertical Provider Document - CONSTITUTIONAL Agree With Documented VS: Yes Exam Limitations: No Limitations General Appearance: No Apparent Distress - INFECTION CONTROL TRAVEL OUTSIDE OF THE [place] IN LAST 30 DAYS: No - HEENT HEENT: Atraumatic, Normocephalic - NECK Neck: Supple - nnnnnnnnnnnnnnnnnnnnnnon tender c spine - RESPIRATORY Respiratory: Breath Sounds Normal, No Respiratory Distress - CARDIOVASCULAR Cardiovascular: Regular Rate, Regular Rhythm - MUSCULOSKELETAL/EXTREMETIES Musculoskeletal/Extremeties: Tender, Edema, Eccymosis - anterior left knee, patellar tendon intact - NEURO Level of Consciousness: Awake, Alert, Appropriate Motor/Sensory: No Motor Deficit, No Sensory Deficit Course - Re-evaluation Re-evalutation: 09/02/18 15:48 Microvascular changes in the brain, nothing acute, small effusion in the left knee, cervical spine arthritis per radiologist 09/02/18 15:53 She has a daughter that lives with her and the daughter that is here with her I have explained the head injury instructions - Vital Signs Vital signs: Temp Pulse Resp BP Pulse Ox 97.9 F 69 18 156/81 H 96 09/02/18 14:17 09/02/18 14:17 09/02/18 14:17 09/02/18 14:17 09/02/18 14:17 Procedures - Immobilization Left Knee Time completed: 16:05 Pre-Proc Neuro Vasc Exam: Normal Immobilizer type: Knee immobilizer Performed by: PCT Post-Proc Neuro Vasc Exam: Normal Alignment checked and good: Yes Discharge - Discharge Clinical Impression: Head injury, Cervical strain Contusion of left knee Qualifiers: Encounter type: initial encounter Qualified Code(s): S80.02XA - Contusion of left knee, initial encounter Condition: Good Disposition: HOME, SELF-CARE Instructions: Contusion ([facility]), Headache ([facility]), Head Injury Precautions ([facility]), Knee Immobilizing Splint ([facility]), Oral Narcotic Medication ([facility]) Additional Instructions: you can take the hydrocodone pain medication that you have at home for the pain Splint for comfort Use the walker Call tomorrow and schedule an appointment with orthopedic doctor Prescriptions: Walker [Folding Walker] 1 each MC ASDIR PRN #1 each PRN Reason: Referrals: DILLON DOLL DO [ACTIVE STAFF] - Follow up in 1 week (call for appointment )
[2018-09-02] MEDS ORDERED: HYDROCODONE/ACETAMINOPHEN 5-325 MG TABLET PO ONE (15:50)
[2018-09-02 16:04] VITALS: BP 150/71
== END 2018-09-02 16:05 | disposition home or self-care (01) ==
LOC: ER 14:15
DX: S80.02XA Contusion of left knee, initial encounter (principal); S16.1XXA Strain of muscle, fascia and tendon at neck level, initial encounter; S09.90XA Unspecified injury of head, initial encounter; R51 Headache; M54.2 Cervicalgia; M25.562 Pain in left knee; W18.09XA Striking against other object with subsequent fall, initial encounter; I10 Essential (primary) hypertension; J44.9 Chronic obstructive pulmonary disease, unspecified
CPT/HCPCS: 99284; 73564; 70450; 72125; L1830; L0120; A9270

== ENCOUNTER → 2018-09-10 | Outpatient (CLI) | payer MEDICARE, OTHER ==
--- NOTE | 2018-09-10 13:26 | RADIOLOGY REPORT (SQ) ---
EXAM DESCRIPTION: VENOUS BILATERAL LOWER COMPLETED DATE/TIME: 09/10/2018 1:17 pm REASON FOR STUDY: LLE PAIN M79.662 PAIN IN LEFT LOWER LEG COMPARISON: None. TECHNIQUE: Dynamic and static enriquez scale and color images acquired of both lower extremity venous sy stems. Selected spectral images acquired with additional compression and augmentation maneuvers. Imag es stored on PACS. LIMITATIONS: None. FINDINGS: RIGHT LEG COMMON FEMORAL AND FEMORAL: Normal phasicity, compression and augmentation. No visualized echogenic m aterial on enriquez scale. No defects on color images. POPLITEAL: Normal compression and augmentation. No visualized echogenic material on enriquez scale. No de fects on color images. CALF VESSELS: Normal compression and augmentation. No visualized echogenic material on enriquez scale. No defects on color image. GSV AND SSV: Normal compression. No visualized echogenic material on enriquez scale. No defects on color images. ANY DEEP VENOUS INSUFFICIENCY: Not evaluated. ANY EVIDENCE OF POPLITEAL CYST: No. OTHER: No other significant finding. LEFT LEG COMMON FEMORAL AND FEMORAL: Normal phasicity, compression and augmentation. No visualized echogenic m aterial on enriquez scale. No defects on color images. POPLITEAL: Normal compression and augmentation. No visualized echogenic material on enriquez scale. No de fects on color images. CALF VESSELS: Normal compression and augmentation. No visualized echogenic material on enriquez scale. No defects on color images. GSV AND SSV: Normal compression. No visualized echogenic material on enriquez scale. No defects on color images. ANY DEEP VENOUS INSUFFICIENCY: Not evaluated. ANY EVIDENCE POPLITEAL CYST: No. OTHER: No other significant finding. IMPRESSION: NO EVIDENCE DVT OR SVT IN EITHER LEG. TECHNICAL DOCUMENTATION: JOB ID: [id number] [employer]- All Rights Reserved Reading location - IP/workstation name: [email or web address]
== END ==
LOC: SP 11:18
PROVIDERS: ATTEND Orthopaedic Surgery
DX: M79.662 Pain in left lower leg (principal)
CPT/HCPCS: 93970

== ENCOUNTER 2018-10-19 00:10 | Emergency (ER) | payer MEDICARE, OTHER ==
--- NOTE | 2018-10-19 00:24 | ER Document Report ---
ED General - General Chief Complaint: Fall Stated Complaint: FALL/RIGHT SIDE PAIN Time Seen by Provider: 10/19/18 00:14 Notes: Patient is a pleasant 78-year-old female presents with complaint of pain along the right ribs. She says it hurts in both the back and the lateral aspect of the ribs. She was going to sit down on her stool in the bathtub when she leaned too far to the right and fell onto the edge of the bathtub onto her right ribs. She says it hurts him to take a deep breath. It hurts to move. She received Fentanyl in the ambulance which has helped. She denies hitting anything else. She denies any other injuries or pain. She did not hit her head. No loss of consciousness. She is not on blood thinners. She takes hydrocodone every day for chronic pain. She also takes Ultram as needed. No other complaints at this time. Abdominal pain. Patient does have history of COPD and does wear 2 L of oxygen at home. Patient lives with her daughter. TRAVEL OUTSIDE OF THE [place] IN LAST 30 DAYS: No - Related Data Allergies/Adverse Reactions: cefditoren [From [employer]] Allergy (Verified 09/02/18 14:17) Past Medical History - Social History Smoking Status: Former Smoker Frequency of alcohol use: None Drug Abuse: None Family History: Reviewed & Not Pertinent Patient has suicidal ideation: No Patient has homicidal ideation: No - Past Medical History Cardiac Medical History: Reports: Hx Congestive Heart Failure, Hx Hypercholesterolemia, Hx Hypertension Denies: Hx Heart Attack Pulmonary Medical History: Reports: Hx Asthma, Hx COPD, Hx Pneumonia Denies: Hx Tuberculosis Neurological Medical History: Denies: Hx Cerebrovascular Accident - BELLS PALSY 30 YEAR AGO, Hx Seizures Endocrine Medical History: Reports: Hx Hypothyroidism Renal/ Medical History: Denies: Hx Peritoneal Dialysis GI Medical History: Reports: Hx Gastroesophageal Reflux Disease, Hx Hiatal Hernia. Denies: Hx Hepatitis, Hx Ulcer Musculoskeletal Medical History: Reports Hx Arthritis - RA Psychiatric Medical History: Reports: Hx Depression Infectious Medical History: Denies: Hx Hepatitis Past Surgical History: Reports: Hx Genitourinary Surgery - BLADDER SURGERIES, Hx Hysterectomy, Hx Tonsillectomy, Hx Urinary Tract Surgery, Other - Bladder tuck 4-5 times. B/L cataracts.. Denies: Hx Mastectomy, Hx Open Heart Surgery, Hx Pacemaker - Immunizations Hx Diphtheria, Pertussis, Tetanus Vaccination: Yes Hx Pneumococcal Vaccination: 10/28/11 Review of Systems - Review of Systems Notes: My Normal Review Basic REVIEW OF SYSTEMS: CONSTITUTIONAL : Denies fever, chills, or sweats. Denies recent illness. EENT: Denies eye, ear, throat, or mouth pain or symptoms. Denies nasal or sinus congestion. RESPIRATORY: Denies cough, cold, or chest congestion. Denies shortness of breath, difficulty breathing, or wheezing. GASTROINTESTINAL: Denies abdominal pain. Denies nausea, vomiting, or diarrhea. MUSCULOSKELETAL: Right-sided rib pain. SKIN: Denies rash or skin lesions. HEMATOLOGIC : Not on blood thinning medications. NEUROLOGICAL: Denies altered mental status or loss of consciousness. Denies headache. Denies weakness or paralysis or loss of use of either side. Denies problems with gait or speech. Denies sensory or motor loss. ALL OTHER SYSTEMS REVIEWED AND NEGATIVE. Physical Exam - Vital signs Vitals: Temp Pulse Resp BP Pulse Ox 97.7 F 62 16 184/57 H 99 10/19/18 00:22 10/19/18 00:22 10/19/18 00:22 10/19/18 00:22 10/19/18 00:22 - Notes Notes: General Appearance: Well nourished, alert, cooperative, no acute distress, mild obvious discomfort. Vitals: reviewed, See vital signs table. Head: no swelling or tenderness to the head Eyes: PERRL, EOMI, Conjuctiva clear Mouth: No decreasd moisture Neck: Supple, no neck tenderness Chest wall: Pain to palpation over the right ribs along ribs approximately 4 through 7. Pain to palpation along the posterior aspect of the ribs as well. No bruising or swelling to the chest wall. No crepitance. Lungs: No wheezing, No rales, No rhonci, No accessory muscle use, good air exchange bilaterally. Heart: Normal rate, Regular rythm, No murmur, no rub Abdomen: Normal BS, soft, No rigidity, No abdominal tenderness, No guarding, no rebound, no bruising to abdomen. Back: No midline tenderness palpation over thoracic or lumbar spine. Patient does have some pain to palpation over the right ribs over the right side of the back. No bruising or swelling over the back. Extremities: good pulses in all extremities, no swelling or tenderness in the extremities, no edema. Skin: warm, dry, appropriate color, no rash Neuro: speech clear, oriented x 3, normal affect, responds appropriately to questions. Cranial nerves II through XII are intact. Patient moves all extremities without difficulty. Course - Vital Signs Vital signs: Temp Pulse Resp BP Pulse Ox 97.7 F 62 16 184/57 H 99 10/19/18 00:22 10/19/18 00:22 10/19/18 00:22 10/19/18 00:22 10/19/18 00:22 Discharge - Discharge Clinical Impression: Rib pain on right side Condition: Good Disposition: HOME, SELF-CARE Additional Instructions: Rib Injuries and Fractures You have been diagnosed as having either bruised or broken ribs. These two injuries are treated in the same way. It will usually take four to six weeks for these injured ribs to heal. Sometimes, rib belts or anesthetic injections of the chest wall help reduce the pain. If you are using a rib belt, you should cough or take a deep breath at least every hour or two to prevent lung complications. You should not engage in any strenuous physical activity until released by your physician. The usual rule is "if it hurts, don't do it." Rib fractures can lead to serious lung complications including lung collapse, hemorrhage, and pneumonia. You should call the physician or return at once if any of the following occur: (1) Fever or chills. (2) Persistent cough, coughing up blood, or shortness of breath. (3) Increasing pain. (4) Weakness, lightheadedness, or fainting. Please use the incentive spirometer at least once an hour while awake to take in a deep breath. Please take your prescribed pain medicine as prescribed. please return to the ER immediately if you have worsening pain, difficulty breathing, fevers, or feel unwell. Referrals: TYRONE MONROY MD [Primary Care Provider] - Follow up in 3-5 days
--- NOTE | 2018-10-19 01:00 | RADIOLOGY REPORT (SQ) ---
CLINICAL HISTORY: rib pain, trauma COMPARISON: None. TECHNIQUE: XR RIBS UNILATERAL WITH CHEST 10/19/2018 12:21 AM SENIOR PORTFOLIO ANALYST FINDINGS: Cardiac silhouette is normal in size. Lungs are clear without consolidation, atelectasis, mass or edema. There is no pleural effusion. There is no pneumothorax. There are no acute osseous findings. IMPRESSION: No definite fracture.
[2018-10-19 01:42] VITALS: BP 164/79
== END 2018-10-19 01:42 | disposition home or self-care (01) ==
LOC: ER 00:10
DX: R07.81 Pleurodynia (principal); M54.9 Dorsalgia, unspecified; W01.198A Fall on same level from slipping, tripping and stumbling with subsequent striking against other object, initial encounter; Y92.002 Bathroom of unspecified non-institutional (private) residence as the place of occurrence of the external cause; R10.9 Unspecified abdominal pain; J44.9 Chronic obstructive pulmonary disease, unspecified; Z99.81 Dependence on supplemental oxygen; I50.9 Heart failure, unspecified; E78.00 Pure hypercholesterolemia, unspecified; I11.0 Hypertensive heart disease with heart failure; Z90.710 Acquired absence of both cervix and uterus
CPT/HCPCS: 99283

== ENCOUNTER → 2019-01-15 | Outpatient (CLI) | payer MEDICARE, OTHER ==
--- NOTE | 2019-01-15 17:54 | RADIOLOGY REPORT (SQ) ---
EXAM DESCRIPTION: CHEST 2 VIEWS COMPLETED DATE/TIME: 01/15/2019 5:22 pm REASON FOR STUDY: J44.0 CHRONIC OBSTRUCTIVE PULMON DISEASE W ACUTE LOWER RESP INFCT COMPARISON: Two-view chest 11/07/2018 Chest and rib detail films 10/19/2018 EXAM PARAMETERS: NUMBER OF VIEWS: two views TECHNIQUE: Digital Frontal and Lateral radiographic views of the chest acquired. RADIATION DOSE: NA LIMITATIONS: none FINDINGS: LUNGS AND PLEURA: No opacities, masses or pneumothorax. No pleural effusion. MEDIASTINUM AND HILAR STRUCTURES: No masses or contour abnormalities. HEART AND VASCULAR STRUCTURES: Moderate cardiomegaly BONES: No acute findings. HARDWARE: None in the chest. OTHER: No other significant finding. IMPRESSION: Moderate stable cardiomegaly. No acute findings TECHNICAL DOCUMENTATION: JOB ID: [id number] [employer]- All Rights Reserved Reading location - IP/workstation name: [email or web address]
== END ==
LOC: RAD 16:55
PROVIDERS: ATTEND Internal Medicine
DX: J44.0 Chronic obstructive pulmonary disease with (acute) lower respiratory infection (principal)
CPT/HCPCS: 71046

== ENCOUNTER → 2019-01-27 | Outpatient (CLI) | payer MEDICARE, OTHER ==
--- NOTE | 2019-01-27 18:22 | RADIOLOGY REPORT (SQ) ---
EXAM DESCRIPTION: VENOUS UNILATERAL LOWER COMPLETED DATE/TIME: 01/27/2019 6:10 pm REASON FOR STUDY: LLE EDEMA I82.402 ACUTE EMBOLISM AND THOMBOS UNSP DEEP VEINS OF L LOW COMPARISON: None. TECHNIQUE: Dynamic and static enriquez scale and color images acquired of the left leg venous system. Se lected spectral images acquired with additional compression and augmentation maneuvers. The contralat eral common femoral vein and saphenofemoral junction were also imaged. Images stored on PACS. LIMITATIONS: None. FINDINGS: COMMON FEMORAL: Normal phasicity, compression and augmentation. No visualized echogenic ma terial on enriquez scale. No defects on color images. FEMORAL: Normal compression and augmentation. No visualized echogenic material on enriquez scale. No defe cts on color images. POPLITEAL: Normal compression, augmentation. No visualized echogenic material on enriquez scale. No defec ts on color images. CALF VESSELS: Normal compression, augmentation. No visualized echogenic material on enriquez scale. No de fects on color images. GSV and SSV: Normal compression, augmentation. No visualized echogenic material on enriquez scale. No def ects on color images. ANY DEEP VENOUS INSUFFICIENCY: Not evaluated. ANY EVIDENCE OF POPLITEAL CYST: No. OTHER: There is diffuse edema in the calf. CONTRALATERAL COMMON FEMORAL VEIN AND SAPHENOFEMORAL JUNCTION: Normal phasicity, compression and augmentation. No visualized echogenic material on enriquez scale. No de fects on color images. IMPRESSION: NO EVIDENCE DVT OR SVT IN THE LEFT LEG. TECHNICAL DOCUMENTATION: JOB ID: [id number] [employer]- All Rights Reserved Reading location - IP/workstation name: [email or web address]
== END ==
LOC: SP 16:53
PROVIDERS: ATTEND Physician Assistant
DX: I82.402 Acute embolism and thrombosis of unspecified deep veins of left lower extremity (principal)
CPT/HCPCS: 93971

== ENCOUNTER 2019-12-29 11:55 | Emergency (ER) | payer MEDICARE, OTHER ==
--- NOTE | 2019-12-29 12:18 | EKG REPORT ---
SEVERITY:- BORDERLINE ECG - SINUS RHYTHM NONSPECIFIC ST-T CHANGES ANTEROSEPTAL LEADS : Confirmed by: Josue Guadarrama MD 29-Dec-2019 12:17:57
[2019-12-29] MEDS ORDERED: ASPIRIN 81 MG TABLET, CHEWABLE PO ONE (12:28)
--- NOTE | 2019-12-29 12:30 | ER Document Report ---
ED Medical Screen (RME) - General Chief Complaint: Chest Pain Stated Complaint: CHEST PAIN Time Seen by Provider: 12/29/19 12:28 Primary Care Provider: NEFTALY FISHER PA-C [Primary Care Provider] - Follow up as needed Notes: 79-year-old female with history of hypertension, hyperlipidemia, and former smoker presents with chest pain that started last night. Patient states it is around her left breast and lasted approximately 3 hours last night and improved. Patient states it started again this morning and has been continuous. Patient states it hurts worse when he she takes a deep breath. Patient has associated dyspnea. Patient recently had left knee replacement 3 weeks ago. Lungs clear to auscultation bilaterally. Regular rate and rhythm. Patient states her interventional pain physician, Dr. Dinero, told her to come to the ER for evaluation. Patient denies any history of blood clots, stents, or CABG. I have greeted and performed a rapid initial assessment of this patient. A comprehensive ED assessment and evaluation of the patient, analysis of test results and completion of the medical decision making process with be conducted by additional ED providers. TRAVEL OUTSIDE OF THE [place] IN LAST 30 DAYS: No - Related Data Allergies/Adverse Reactions: cefditoren [From [employer]] Allergy (Verified 11/05/18 15:07) Past Medical History - Past Medical History Cardiac Medical History: Reports: Hx Congestive Heart Failure, Hx Hypercholesterolemia, Hx Hypertension Denies: Hx Heart Attack Pulmonary Medical History: Reports: Hx Asthma, Hx COPD, Hx Pneumonia Denies: Hx Tuberculosis Neurological Medical History: Denies: Hx Cerebrovascular Accident - BELLS PALSY 30 YEAR AGO, Hx Seizures Endocrine Medical History: Reports: Hx Hypothyroidism Renal/ Medical History: Denies: Hx Peritoneal Dialysis GI Medical History: Reports: Hx Gastroesophageal Reflux Disease, Hx Hiatal Hernia. Denies: Hx Hepatitis, Hx Ulcer Musculoskeltal Medical History: Reports Hx Arthritis - RA Psychiatric Medical History: Reports: Hx Depression Infectious Medical History: Denies: Hx Hepatitis Past Surgical History: Reports: Hx Genitourinary Surgery - BLADDER SURGERIES, Hx Hysterectomy, Hx Tonsillectomy, Hx Urinary Tract Surgery, Other - Bladder tuck 4-5 times. B/L cataracts.. Denies: Hx Mastectomy, Hx Open Heart Surgery, Hx Pacemaker - Immunizations Hx Diphtheria, Pertussis, Tetanus Vaccination: Yes Physical Exam - Vital signs Vitals: Temp Pulse Resp BP Pulse Ox 98.2 F 84 18 161/74 H 95 12/29/19 12:17 12/29/19 12:17 12/29/19 12:17 12/29/19 12:17 12/29/19 12:17 Course - Vital Signs Vital signs: Temp Pulse Resp BP Pulse Ox 98.2 F 84 18 161/74 H 95 12/29/19 12:17 12/29/19 12:17 12/29/19 12:17 12/29/19 12:17 12/29/19 12:17 Doctor's Discharge - Discharge Referrals: NEFTALY FISHER, ERNST [Primary Care Provider] - Follow up as needed
[2019-12-29 12:49] LABS: ABSOLUTE EOSINOPHILS # (AUTO) 0.3 10^3/uL (0.0-0.6); ABSOLUTE LYMPHOCYTES (AUTO) 1.4 10^3/uL (0.5-4.7); ABSOLUTE MONOCYTES (AUTO) 0.6 10^3/uL (0.1-1.4); ABSOLUTE NEUT (AUTO) 5.4 10^3/uL (1.7-8.2); BASOPHILS % (AUTO) 0.3 % (0-2); EOSINOPHILS % (AUTO) 3.7 % (0-6); HEMATOCRIT 31.3 % (36.0-47.0); HEMOGLOBIN 10.3 g/dL (12.0-15.5); LYMPHOCYTES % (AUTO) 18.6 % (13-45); MEAN CORPUSCULAR HEMOGLOBIN 30.3 pg (27.0-33.4); MEAN CORPUSCULAR HGB CONC 32.9 g/dL (32.0-36.0); MEAN CORPUSCULAR VOLUME 92 fl (80-97); MONOCYTES % (AUTO) 7.3 % (3-13); PLATELET COUNT 412 10^3/uL (150-450); RED BLOOD COUNT 3.39 10^6/uL (3.72-5.28); SEGMENTED NEUTROPHILS % (AUTO) 70.1 % (42-78); TOTAL CELLS COUNTED % (AUTO) 100 %; WHITE BLOOD COUNT 7.7 10^3/uL (4.0-10.5)
--- NOTE | 2019-12-29 12:50 | RADIOLOGY REPORT (SQ) ---
EXAM DESCRIPTION: CHEST 2 VIEWS COMPLETED DATE/TIME: 12/29/2019 12:42 pm REASON FOR STUDY: chest pain COMPARISON: 01/15/2019. EXAM PARAMETERS: NUMBER OF VIEWS: two views TECHNIQUE: Digital Frontal and Lateral radiographic views of the chest acquired. RADIATION DOSE: NA LIMITATIONS: none FINDINGS: LUNGS AND PLEURA: No opacities, masses or pneumothorax. No pleural effusion. MEDIASTINUM AND HILAR STRUCTURES: No masses or contour abnormalities. HEART AND VASCULAR STRUCTURES: Heart upper limits of normal size. No evidence for failure. BONES: No acute findings. Degenerative changes in the spine. HARDWARE: None in the chest. OTHER: No other significant finding. IMPRESSION: NO ACUTE RADIOGRAPHIC FINDING IN THE CHEST. TECHNICAL DOCUMENTATION: JOB ID: [id number] 2010 [employer]- All Rights Reserved Reading location - IP/workstation name: [email or web address]
[2019-12-29 13:12] LABS: ALBUMIN 3.8 g/dL (3.5-5.0); ALKALINE PHOSPHATASE 110 U/L (38-126); ANION GAP 7 (5-19); ASPARTATE AMINO TRANSFERASE 33 U/L (14-36); BILIRUBIN,DIRECT 0.1 mg/dL (0.0-0.4); BILIRUBIN,TOTAL 0.5 mg/dL (0.2-1.3); BLOOD UREA NITROGEN 18 mg/dL (7-20); CALCIUM 9.2 mg/dL (8.4-10.2); CARBON DIOXIDE 35 mmol/L (22-30); CHLORIDE 102 mmol/L (98-107); GLUCOSE 95 mg/dL (75-110); POTASSIUM 3.8 mmol/L (3.6-5.0); TOTAL PROTEIN 6.4 g/dL (6.3-8.2)
--- NOTE | 2019-12-29 13:31 | ER Document Report ---
ED General - General Chief Complaint: Chest Pain Stated Complaint: CHEST PAIN Time Seen by Provider: 12/29/19 12:28 Primary Care Provider: NEFTALY FISHER PA-C [PHYSICIAN SUBSTATION OPERATOR HELPER] - Follow up as needed TRAVEL OUTSIDE OF THE [place] IN LAST 30 DAYS: No - HPI Notes: Patient is a 79-year-old female with a history of hypertension, hyperlipidemia, and former smoker presents complaining of left lower chest pain that began last night. Patient states that mostly hurts when she takes a deep breath. She has had some shortness of breath associated. The pain does not radiate. Patient states that the pain overall has improved and she is feeling much better right now, but the pain has been relatively constant. Patient does report having a total knee replacement performed 3 weeks ago. Patient states that she is having a little more swelling to her left leg than normal and does have some leg pain associated as well. Patient states that she usually has had some pain to the leg since the surgery otherwise. Denies any prolonged immobilization, distance travel, recent surgery/trauma, personal cancer history, hormone use, or previous DVT/PE. She is not on any blood thinning medications. Denies any headache, fever, neck pain, URI, sore throat, palpitations, syncope, cough, wheeze, abdominal pain, nausea/vomiting/diarrhea, urinary retention, dysuria, hematuria, or rash. - Related Data Allergies/Adverse Reactions: cefditoren [From [employer]] Allergy (Verified 12/29/19 12:30) Past Medical History - Social History Smoking Status: Former Smoker Family History: Reviewed & Not Pertinent Patient has suicidal ideation: No Patient has homicidal ideation: No - Past Medical History Cardiac Medical History: Reports: Hx Congestive Heart Failure, Hx Hypercholesterolemia, Hx Hypertension Denies: Hx Heart Attack Pulmonary Medical History: Reports: Hx Asthma, Hx COPD, Hx Pneumonia Denies: Hx Tuberculosis Neurological Medical History: Denies: Hx Cerebrovascular Accident - BELLS PALSY 30 YEAR AGO, Hx Seizures Endocrine Medical History: Reports: Hx Hypothyroidism Renal/ Medical History: Denies: Hx Peritoneal Dialysis GI Medical History: Reports: Hx Gastroesophageal Reflux Disease, Hx Hiatal Hernia. Denies: Hx Hepatitis, Hx Ulcer Musculoskeletal Medical History: Reports Hx Arthritis - RA Psychiatric Medical History: Reports: Hx Depression Infectious Medical History: Denies: Hx Hepatitis Past Surgical History: Reports: Hx Genitourinary Surgery - BLADDER SURGERIES, Hx Hysterectomy, Hx Tonsillectomy, Hx Urinary Tract Surgery, Other - Bladder tuck 4-5 times. B/L cataracts.. Denies: Hx Mastectomy, Hx Open Heart Surgery, Hx Pacemaker - Immunizations Hx Diphtheria, Pertussis, Tetanus Vaccination: Yes Hx Pneumococcal Vaccination: 10/28/11 Review of Systems - Review of Systems -: Yes All other systems reviewed and negative Physical Exam - Vital signs Vitals: Temp Pulse Resp BP Pulse Ox 98.2 F 84 18 161/74 H 95 12/29/19 12:17 12/29/19 12:17 12/29/19 12:17 12/29/19 12:17 12/29/19 12:17 - Notes Notes: PHYSICAL EXAMINATION: GENERAL: Well-appearing, well-nourished and in no acute distress. HEAD: Atraumatic, normocephalic. EYES: Pupils equal round and reactive to light, extraocular movements intact, sclera anicteric, conjunctiva are normal. ENT: Nares patent and without discharge. oropharynx clear without exudates. No tonsilar hypertrophy or erythema. Moist mucous membranes. NECK: Normal range of motion, supple without lymphadenopathy LUNGS: Breath sounds clear to auscultation bilaterally and equal. No wheezes rales or rhonchi. HEART: Regular rate and rhythm without murmurs, rubs, gallops. ABDOMEN: Soft, nontender, nondistended abdomen. No guarding, no rebound. Normal bowel sounds present. No CVA tenderness bilaterally. Musculoskeletal: FROM to passive/active. Strength 5+/5. Michael neg. No asymmetry to LE's. Extremities: trace to 1+ pitting LLE. No edema RLE. + tenderness left lower leg, but recent surgery as well. No erythema or warmth. Peripheral pulses 2+. Capillary refill less than 3 seconds. NEUROLOGICAL: Normal speech, normal gait. PSYCH: Normal mood, normal affect. SKIN: Warm, Dry, normal turgor, no rashes or lesions noted. Course - Re-evaluation Re-evalutation: 12/29/19 15:07 I did leave a VM with Dr. Dinero's office to call me back. Venous doppler unofficially negative, CTA negative. Labs acceptable. Vitals acceptable. 12/29/19 16:21 I did speak with Dr. Dinero. He states that she had a negative stress test within the last several months. He states with 2nd neg trop that she can go home and his office will contact her for f/u. No further recommendations at this time. Pt in agreement with plan. 12/29/19 16:27 Patient is an afebrile, well-hydrated 79-year-old female who presents to the ED with chest pain, unspecified. Vitals are acceptable without any significant tachycardia, tachypnea, or hypoxia. PE is otherwise unremarkable. Patient is nontoxic-appearing and is tolerating p.o. without any difficulties. Pt is currently asymptomatic. CBC, CMP, EKG/cardiac enzymes 2, chest x-ray, CTA silvia st are all unremarkable for any acute pathology. Pt is Wells 0. Patient does not have any chest pain, dyspnea, or shortness of breath. Patient's presentation and symptomatology creates low suspicion for ACS, PE, pneumothorax, pericarditis, dissection, respiratory compromise, severe dehydration, sepsis, meningitis, or other systemic emergent condition at this time. Patient is aware that his condition can change from initial presentation and she needs to monitor symptoms closely and seek medical attention for any acute changes. Pt is feeling better and would like to go home. Recommend conservative measures for symptoms. Recheck with your PCM in 3-5 days. Schedule consult with Cardiology. Return to the ED with any worsening/concerning symptoms otherwise as reviewed in discharge. Patient is in agreement. - Vital Signs Vital signs: Temp Pulse Resp BP Pulse Ox 98.7 F 84 12 153/65 H 94 12/29/19 15:29 12/29/19 12:17 12/29/19 15:29 12/29/19 15:29 12/29/19 15:29 - Laboratory Result Diagrams: 12/29/19 12:30 12/29/19 12:30 Laboratory results interpreted by me: 12/29/19 12/29/19 12/29/19 12:30 12:30 12:30 RBC 3.39 L Hgb 10.3 L Hct 31.3 L RDW 15.0 H D-Dimer 7.29 H Carbon Dioxide 35 H Discharge - Discharge Clinical Impression: Atypical chest pain Condition: Stable Disposition: HOME, SELF-CARE Instructions: Chest Pain of Unclear Cause ([facility]) Additional Instructions: Maintain adequate fluid and food intake Take home medications as directed Low sodium/fat diet Monitor blood pressure daily and keep a log Monitor symptoms for any acute changes Recheck with your PCM in 3-5 days Schedule follow-up with cardiology Return to the ED with any worsening symptoms and/or development of fever, headache, chest pain, palpitations, syncope, shortness of breath, trouble breathing, abdominal pain, n/v/d, blood in stool/urine, loss of control of bowel/bladder, urinary retention, muscle weakness/paralysis, numbness/tingling, or other worsening symptoms that are concerning to you. Forms: Elevated Blood Pressure Referrals: NEFTALY FISHER PA-C [PHYSICIAN SUBSTATION OPERATOR HELPER] - Follow up as needed RUDY DINERO MD [ACTIVE PROVISIONAL STAFF] - Follow up in 3-5 days
--- NOTE | 2019-12-29 14:43 | RADIOLOGY REPORT (SQ) ---
EXAM DESCRIPTION: CTA CHEST COMPLETED DATE/TIME: 12/29/2019 2:29 pm REASON FOR STUDY: left chest pain, dyspnea COMPARISON: None. TECHNIQUE: CT scan of the chest performed using helical scanning technique with dynamic intravenous contrast injection. Images reviewed with lung, soft tissue and bone windows. Reconstructed coronal and sagittal MPR images reviewed. Additional 3 dimensional post-processing performed to develop Maximal Intensity Projection images (CT P). All images stored on PACS. All CT scanners at this facility use dose modulation, iterative reconstruction, and/or weight based d osing when appropriate to reduce radiation dose to as low as reasonably achievable (ALARA). [facility]: Dose Right [facility]: CareDose [facility]: Dose Right [facility]: Teradose 4D [facility]: iCentera CONTRAST TYPE AND DOSE: contrast/concentration: Isovue 350.00 mg/ml; Total Contrast Delivered: 59.0 ml; Total Saline Delivered: 66.0 ml Contrast bolus adequate for pulmonary arteries and aorta. RENAL FUNCTION: BUN 18 creatinine 0.89 RADIATION DOSE: CT Rad equipment meets quality standard of care and radiation dose reduction techniq ues were employed. CTDIvol: 6.6 - 14.8 mGy. DLP: 546 mGy-cm. . LIMITATIONS: None. FINDINGS: LUNGS AND PLEURA: A couple of calcified granulomas are seen in the right lung. No other m asses. No infiltrate or effusion. AORTA AND GREAT VESSELS: No aneurysm. No dissection. HEART: No pericardial effusion. Moderate coronary artery calcifications. PULMONARY ARTERIES: No emboli visualized in the main pulmonary arteries or the segmental branches. HILAR AND MEDIASTINAL STRUCTURES: No identified masses or abnormal nodes. HARDWARE: None in the chest. UPPER ABDOMEN: No significant findings. Limited exam. THYROID AND OTHER SOFT TISSUES: No masses. No adenopathy. BONES: No acute or significant finding. 3D MIPS: Confirm above findings. OTHER: No other significant finding. IMPRESSION: No pulmonary emboli. No aortic aneurysm or dissection. No acute findings in the thorax . COMMENT: Quality ID # [id number]: Final reports with documentation of one or more dose reduction techniques (e.g., Automated exposure control, adjustment of the mA and/or kV according to patient size, use of iterative reconstruction technique) TECHNICAL DOCUMENTATION: JOB ID: [id number] 2010 [employer]- All Rights Reserved Reading location - IP/workstation name: [email or web address]
[2019-12-29 15:20] LABS: APPEARANCE,URINE CLEAR; BILIRUBIN,URINE NEGATIVE (NEGATIVE); COLOR,URINE STRAW; GLUCOSE, URINE NEGATIVE (NEGATIVE); KETONES,URINE NEGATIVE (NEGATIVE); PROTEIN,URINE NEGATIVE (NEGATIVE); URINE SPECIFIC GRAVITY 1.013; UROBILINOGEN,URINE NEGATIVE mg/dL (<2.0)
[2019-12-29 16:32] VITALS: BP 163/61
--- NOTE | 2019-12-29 17:32 | XCELERA REPORT ---
[address] [place] [facility] [address] Lower Extremity Venous Evaluation Procedure: Color flow and duplex imaging of the veins of the left lower extremity as well as the right Common Femoral vein. Right Sided Venous Evaluation The right common femoral vein is fully compressible. Spontaneous and phasic flow is present in the right common femoral vein. Left Sided Venous Evaluation Normal vessel filling wall to wall, compression and augmentation as well as Colour flow down to the infrageniculate veins. Interpretation Summary No duplex evidence of DVT or obstruction in the left lower extremity nor in the right Common Femoral vein. Name: YANELIS ESPAÑA Age: 79 yrs Gender: Female : 1940 Patient Status: Emergency Patient Location: ER Study Date: 12/29/2019 02:06 PM Reason For Study: left leg pain, recent surgery Ordering Physician: GIANNA ALVARES Performed By: Brooklynn Wilkes : GIANNA ALVARES > Jacob Tian
== END 2019-12-29 16:50 | disposition home or self-care (01) ==
LOC: ER 11:55
DX: R07.89 Other chest pain (principal); I10 Essential (primary) hypertension; R07.1 Chest pain on breathing; J44.9 Chronic obstructive pulmonary disease, unspecified; R06.02 Shortness of breath; M79.606 Pain in leg, unspecified; R60.0 Localized edema; Z96.659 Presence of unspecified artificial knee joint; Z87.891 Personal history of nicotine dependence; Z88.1 Allergy status to other antibiotic agents
CPT/HCPCS: 93005; 99285; 36415; 85025; 80053; 81001; 84484; 85379; 93971 ×2; 71046; 71275; 93010; A9270

== ENCOUNTER → 2020-07-28 | Outpatient (CLI) | payer MEDICARE, OTHER ==
--- NOTE | 2020-07-28 14:24 | WOMENS IMAGING REPORT ---
EXAM DESCRIPTION: BONE DENSITY HIP/SPINE IMAGES COMPLETED DATE/TIME: 07/28/2020 2:06 pm REASON FOR STUDY: M81.0 AGE-RELATED OSTEOPOROSIS W/O CURRENT PATHOLOGICAL FRACTURE Z12.31 ENCNTR SC REEN MAMMOGRAM FOR MALIGNANT NEOPLASM OF CHRIS M81.0 AGE-RELATED OSTEOPOROSIS W/O CURRENT PATHOLOGICAL FRAC COMPARISON: 04/22/2018 TECHNIQUE: Dual-Energy X-ray Absorptiometry (DEXA) of the AP Spine and Hip. LIMITATIONS: None. FINDINGS: LUMBAR SPINE: The bone mineral density (BMD) measured from L1-L4 in the AP projection correlates with a T-score of 3.0, which is normal as defined by the World Health Organization. BMD Change vs Baseline: +4.7% HIP: The bone mineral density (BMD) measured in the left hip correlates with a T-score of -2.3 in the femo ral neck, which is osteopenia as defined by the World Health Organization. BMD Change vs Baseline: -7.8% 10 year Fracture Risk Assessment: Major Osteoporotic Fracture: Not available. Hip Fracture: Not available. IMPRESSION: 1. LUMBAR SPINE WHO CLASSIFICATION: NORMAL. 2. HIP WHO CLASSIFICATION: OSTEOPENIA. OVERALL ASSESSMENT: WHO CLASSIFICATION: OSTEOPENIA. COMMENT: The World Health Organization defines low BMD as follows: T-score: Normal: At or above -1.0 Osteopenia: Between -1.0 and -2.5 Osteoporosis: At or below -2.5 without fractures Established osteoporosis: At or below -2.5 with fractures In general, you may wish to consider: Diagnosis Treatment Follow-up DEXA Normal BMD Prevention 2-3 years Osteopenia Prevention/Therapy 1-2 years Osteoporosis Therapy Yearly TECHNICAL DOCUMENTATION: JOB ID: [id number] [employer]- All Rights Reserved Reading location - IP/workstation name: [email or web address]
--- NOTE | 2020-07-28 15:31 | WOMENS IMAGING REPORT ---
EXAM DESCRIPTION: 3D SCREENING MAMMO BILAT IMAGES COMPLETED DATE/TIME: 07/28/2020 2:06 pm REASON FOR STUDY: Z12.31 ENCNTR SCREEN MAMMOGRAM FOR MALIGNANT NEOPLASM OF BREAST Z12.31 ENCNTR SCR EEN MAMMOGRAM FOR MALIGNANT NEOPLASM OF CHRIS M81.0 AGE-RELATED OSTEOPOROSIS W/O CURRENT PATHOLOGICAL FRAC COMPARISON: 04/22/2018, 04/10/2017, 02/24/2014 EXAM PARAMETERS: Views: Standard craniocaudal and mediolateral oblique views of each breast recorded using digital acquisition and breast tomosynthesis. Read with the assistance of CAD. .[facility] - [employer] Version 9.2 LIMITATIONS: None. FINDINGS: No suspicious masses, suspicious calcifications or architectural distortion. No areas of c oncern. IMPRESSION: NEGATIVE MAMMOGRAM. BIRADS 1. BREAST DENSITY: b. There are scattered areas of fibroglandular density. BIRAD: ASSESSMENT: 1 NEGATIVE RECOMMENDATION: ROUTINE SCREENING COMMENT: The patient has been notified of the results by letter per SA requirements. Additional no tification policies are in place for contacting patient with suspicious or incomplete findings. Quality ID #[id number]: The [employer] recommends an annual screening mammogram for women aged 40 years or over. This facility utilizes a reminder system to ensure that all patients receive reminder letters, and/or direct phone calls for appointments. This includes reminders for routine scr eening mammograms, diagnostic mammograms, or other Breast Imaging Interventions when appropriate. Th is patient will be placed in the appropriate reminder system. TECHNICAL DOCUMENTATION: FINDING NUMBER: (1) ASSESSMENT: (1) JOB ID: [id number] 2010 [employer]- All Rights Reserved Reading location - IP/workstation name: [email or web address]
== END ==
LOC: WI 13:09
PROVIDERS: ATTEND Internal Medicine
DX: Z12.31 Encounter for screening mammogram for malignant neoplasm of breast (principal); M81.0 Age-related osteoporosis without current pathological fracture
CPT/HCPCS: 77063; 77067; 77080